=== PATIENT | male | born 1955 | race Caucasian/White ===

== ENCOUNTER 2018-12-26 18:41 | Inpatient (IN) | payer MEDICAID ==
[~2018-12-26] VITALS: Ht 183 cm; Wt 79.8 kg
[2018-12-26] MEDS ORDERED: SODIUM CHLORIDE 0.9% 500 ML IV ONE (20:00)
[2018-12-26 20:11] LABS: BASOPHILS % 0.8 % (0.0-2.0); HEMATOCRIT. 32.2 % (42.0-52.0); HEMOGLOBIN. 10.8 g/dL (14.0-18.0); LYMPHOCYTES % 16.7 % (20.0-50.0); MEAN CORPUSCULAR HEMOGLOBIN 29.2 pg (28.0-32.0); MEAN CORPUSCULAR VOLUME 87.1 fL (80.0-94.0); MEAN PLATELET VOLUME 8.3 fl (7.4-10.4); MONOCYTES % 11.1 % (2.0-8.0); NEUTROPHILS % 67.4 % (40.0-76.0); PLATELET 162 x1000/uL (130-400); RED CELL DISTRIBUTION WIDTH 18.9 % (11.6-14.6)
[2018-12-26 20:20] LABS: CHLORIDE 105 mEq/L (98-107)
[2018-12-26] MEDS ORDERED: DILTIAZEM HCL 5MG/ML 5ML VIAL IV ONE ×2 (20:30→21:30)
[2018-12-26] MEDS ORDERED: DILTIAZEM HCL 125 MG in DEXT 5% WATER 100 ML IV ONE ×2 (20:30→21:00)
[2018-12-26 20:42] LABS: INR 1.2; PARTIAL THROMBOPLASTIN TIME 26.6 sec (23.4-31.0)
[2018-12-26] MEDS ORDERED: KETOROLAC 30MG/ML VIAL IV ONE (21:00)
[2018-12-26] MEDS ORDERED: HALOPERIDOL LACTATE 5MG/ML VIAL IM ONE (21:00)
[2018-12-27] VITALS (62 sets, daily range): BP systolic 72–140; BP diastolic 30–99
[2018-12-27] MEDS ORDERED: AMIODARONE HCL 900 MG in DEXT 5% WATER 482 ML IV PRN ×2 (01:00→01:15)
[2018-12-27] MEDS ORDERED: FUROSEMIDE 40MG/4ML VIAL IVP NR (01:45)
[2018-12-27] MEDS ORDERED: LORAZEPAM 2MG/ML CPJ IV NR ×2 (03:15→19:30)
[2018-12-27] MEDS ORDERED: CYCL25PO21 MT (03:45)
[2018-12-27] MEDS ORDERED: LISI-604 MT (03:45)
[2018-12-27] MEDS ORDERED: SPIR25TA6 MT (03:45)
[2018-12-27] MEDS ORDERED: DIGO250T79 PO (03:45)
[2018-12-27] MEDS ORDERED: FURO-151 MT (03:45)
[2018-12-27] MEDS ORDERED: COR25 MT (03:45)
[2018-12-27] MEDS: DILTIAZEM HCL 125 MG in DEXT 5% WATER 100 ML IV PRN ×2 (04:19→09:47)
[2018-12-27] MEDS: AMIODARONE HCL 900 MG in DEXT 5% WATER 482 ML IV PRN (04:21)
[2018-12-27 04:48] LABS: BG BASE EXCESS -1.6 mmol/L (-2.0-2.0); BG CARBOXYHEMOGLOBIN 0.9 % (0.5-1.5); BG DEOXYHEMOGLOBIN 3.9 % (0.0-5.0); BG FRACTION INSPIRED OXYGEN 100; BG HCO3 ACT 23.9 mmol/L (22.0-26.0); BG METHEMOGLOBIN 0.1 % (0.0-1.5); BG OXYGEN SATURATION 96.1 % (92.0-98.5); BG OXYHEMOGLOBIN 95.1 % (94.0-97.0); BG PH 7.362 (7.350-7.450); BG SAMPLE SITE RIGHT BRACHIAL; BG TOTAL HEMOGLOBIN 13.3 g/dL (12.0-18.0); BG VENT MODE MASK - NRB
[2018-12-27 05:48] LABS: BASOPHILS % 0.6 % (0.0-2.0); HEMATOCRIT. 37.8 % (42.0-52.0); HEMOGLOBIN. 12.4 g/dL (14.0-18.0); LYMPHOCYTES % 9.3 % (20.0-50.0); MEAN CORPUSCULAR HEMOGLOBIN 28.9 pg (28.0-32.0); MEAN PLATELET VOLUME 9.1 fl (7.4-10.4); MONOCYTES % 8.3 % (2.0-8.0); NEUTROPHILS % 80.8 % (40.0-76.0); PLATELET 212 x1000/uL (130-400); RED CELL DISTRIBUTION WIDTH 18.7 % (11.6-14.6)
[2018-12-27 05:50] LABS: CHLORIDE 102 mEq/L (98-107)
[2018-12-27] MEDS ORDERED: FUROSEMIDE 100MG/10ML VIAL IV SCH (07:45)
[2018-12-27 08:08] LABS: BG CARBOXYHEMOGLOBIN 0.9 % (0.5-1.5); BG DEOXYHEMOGLOBIN 6.7 % (0.0-5.0); BG FRACTION INSPIRED OXYGEN 100; BG METHEMOGLOBIN 0.2 % (0.0-1.5); BG OXYGEN SATURATION 93.2 % (92.0-98.5); BG OXYHEMOGLOBIN 92.2 % (94.0-97.0); BG PH 7.341 (7.350-7.450); BG PO2 75.1 mmHg (75.0-100.0); BG SAMPLE SITE RIGHT BRACHIAL; BG TOTAL HEMOGLOBIN 14.1 g/dL (12.0-18.0); BG VENT MODE MASK - NRB
[2018-12-27] MEDS ORDERED: BUMETANIDE 1MG/4ML VIAL IV SCH (08:50)
[2018-12-27] MEDS ORDERED: IPRATROPIUM BROMIDE (0.02%) 0.5MG/2.5ML NEB HHN PRN (09:00)
[2018-12-27] MEDS: IPRATROPIUM BROMIDE (0.02%) 0.5MG/2.5ML NEB HHN SCH ×4 (09:48→20:56)
[2018-12-27] MEDS: BUMETANIDE 2.5MG/10ML VIAL IV SCH ×2 (11:03→17:08)
[2018-12-27] MEDS: ENOXAPARIN 80MG/0.8ML SYR SUBCUT SCH (17:08)
[2018-12-27] MEDS ORDERED: NOREPINEPHRINE 16 MG in DEXT 5% WATER 484 ML IV PRN (19:45)
[2018-12-27] MEDS ORDERED: MORPHINE SULFATE 2 MG/ML CPJ (NOT FOR IM USE) IV NR (22:45)
[2018-12-28] VITALS (111 sets, daily range): BP systolic 52–151; BP diastolic 28–89
[2018-12-28] MEDS: NOREPINEPHRINE 16 MG in DEXT 5% WATER 484 ML IV PRN ×3 (00:17→14:49)
[2018-12-28] MEDS: IPRATROPIUM BROMIDE (0.02%) 0.5MG/2.5ML NEB HHN SCH ×6 (00:41→20:33)
[2018-12-28] MEDS: LORAZEPAM 2MG/ML CPJ IV PRN ×2 (02:00→07:39)
[2018-12-28] MEDS ORDERED: AMIODARONE HCL 900 MG in DEXT 5% WATER 482 ML IV SCH (02:15)
[2018-12-28] MEDS: MORPHINE SULFATE 2 MG/ML CPJ (NOT FOR IM USE) IV PRN ×4 (04:19→22:25)
[2018-12-28] MEDS: ENOXAPARIN 80MG/0.8ML SYR SUBCUT SCH (05:16)
[2018-12-28] MEDS: AMIODARONE HCL 900 MG in DEXT 5% WATER 482 ML IV PRN (05:21)
[2018-12-28] MEDS ORDERED: INSULIN REGULAR (HUMULIN R) 300UNITS/3ML IV ONE (07:00)
[2018-12-28] MEDS ORDERED: DEXTROSE 50% WATER 50ML SYRINGE IV ONE (07:00)
[2018-12-28] MEDS ORDERED: SODIUM POLYSTYRENE SULFONATE 15 G/60 ML BOT PO ONE (07:00)
[2018-12-28] MEDS ORDERED: SODIUM BICARBONATE 8.4% 1 MEQ/ML 50ML SYR IV NR ×2 (08:30→11:30)
[2018-12-28] MEDS: BUMETANIDE 2.5MG/10ML VIAL IV SCH ×2 (09:31→17:54)
[2018-12-28] MEDS: PROPOFOL 10MG/ML 100ML 100 ML IV PRN ×2 (09:32→14:00)
[2018-12-28] MEDS ORDERED: DEXTROSE 50% WATER 50ML SYRINGE IV SCH (09:45)
[2018-12-28] MEDS ORDERED: INSULIN REGULAR (HUMULIN R) 300UNITS/3ML IV SCH (10:00)
[2018-12-28 10:51] LABS: BG BASE EXCESS -14.6 mmol/L (-2.0-2.0); BG CARBOXYHEMOGLOBIN 0.7 % (0.5-1.5); BG DEOXYHEMOGLOBIN 0.5 % (0.0-5.0); BG FRACTION INSPIRED OXYGEN 100; BG HCO3 ACT 15.7 mmol/L (22.0-26.0); BG METHEMOGLOBIN 0.4 % (0.0-1.5); BG OXYGEN SATURATION 99.5 % (92.0-98.5); BG OXYHEMOGLOBIN 98.4 % (94.0-97.0); BG PCO2 55.9 mmHg (35.0-45.0); BG PH 7.067 (7.350-7.450); BG PO2 275.7 mmHg (75.0-100.0); BG SAMPLE SITE LEFT RADIAL; BG TIDAL VOLUME(mL) 500 mL; BG TOTAL HEMOGLOBIN 13.1 g/dL (12.0-18.0); BG VENT MODE VENT - A/C; BG VENT RATE 18 set
[2018-12-28] MEDS ORDERED: SODIUM BICARBONATE 8.4% 1 MEQ/ML 50ML SYR IV ONE ×2 (11:00→11:25)
[2018-12-28] MEDS ORDERED: SODIUM BICARBONATE 8.4% 1 MEQ/ML 50ML SYR IV SCH (11:00)
[2018-12-28] MEDS: PHENYLEPHRINE 40 MG in DEXT 5% WATER 246 ML IV PRN ×2 (11:01→11:34)
[2018-12-28] MEDS: FAMOTIDINE 20MG/2ML VIAL IV SCH (11:20)
[2018-12-28] MEDS ORDERED: CALCIUM CHLORIDE 1,000 MG in DEXT 5% WATER 90 ML IV SCH (12:30)
[2018-12-28] MEDS ORDERED: LIDOCAINE HCL 1% 20ML VIAL (Pyxis) INJ ONE (13:29)
[2018-12-28 15:26] LABS: BG BASE EXCESS -3.6 mmol/L (-2.0-2.0); BG CARBOXYHEMOGLOBIN 1.2 % (0.5-1.5); BG DEOXYHEMOGLOBIN 7.6 % (0.0-5.0); BG FRACTION INSPIRED OXYGEN 40; BG HCO3 ACT 22.6 mmol/L (22.0-26.0); BG METHEMOGLOBIN 0.1 % (0.0-1.5); BG OXYGEN SATURATION 92.3 % (92.0-98.5); BG OXYHEMOGLOBIN 91.1 % (94.0-97.0); BG PCO2 45.5 mmHg (35.0-45.0); BG PH 7.314 (7.350-7.450); BG PO2 70.2 mmHg (75.0-100.0); BG SAMPLE SITE RIGHT RADIAL; BG TIDAL VOLUME(mL) 500 mL; BG TOTAL HEMOGLOBIN 12.8 g/dL (12.0-18.0); BG VENT MODE VENT - A/C; BG VENT RATE 24 set
[2018-12-28 15:38] LABS: HEMATOCRIT. 39.3 % (42.0-52.0); HEMOGLOBIN. 12.5 g/dL (14.0-18.0); MEAN CORPUSCULAR HEMOGLOBIN 28.4 pg (28.0-32.0); MEAN CORPUSCULAR VOLUME 89.6 fL (80.0-94.0); MEAN PLATELET VOLUME 9.4 fl (7.4-10.4); PLATELET 206 x1000/uL (130-400); RED BLOOD CELL COUNT 4.39 mill/uL (4.7-6.1); RED CELL DISTRIBUTION WIDTH 18.6 % (11.6-14.6)
[2018-12-28 17:01] LABS: PLATELET ESTIMATE NORMAL
[2018-12-28 17:12] LABS: *AMPHETAMINES SCREEN URINE NEGATIVE (NEGATIVE); *BARBITURATES SCREEN URINE NEGATIVE (NEGATIVE)
[2018-12-28 17:13] LABS: *BENZODIAZEPINES SCREEN URINE NEGATIVE (NEGATIVE); *COCAINE SCREEN URINE NEGATIVE (NEGATIVE); CANNABINOID URINE SCREEN NEGATIVE (NEGATIVE); METHADONE URINE SCREEN NEGATIVE (NEGATIVE); OPIATES URINE SCREEN NEGATIVE (NEGATIVE)
[2018-12-28 17:16] LABS: PHENCYCLIDINE URINE SCREEN NEGATIVE (NEGATIVE)
[2018-12-28 19:59] LABS: BG BASE EXCESS 2.3 mmol/L (-2.0-2.0); BG DEOXYHEMOGLOBIN 9.1 % (0.0-5.0); BG FRACTION INSPIRED OXYGEN 100; BG HCO3 ACT 28.1 mmol/L (22.0-26.0); BG METHEMOGLOBIN 0.2 % (0.0-1.5); BG OXYGEN SATURATION 90.8 % (92.0-98.5); BG OXYHEMOGLOBIN 89.7 % (94.0-97.0); BG PH 7.377 (7.350-7.450); BG PO2 65.1 mmHg (75.0-100.0); BG SAMPLE SITE RIGHT BRACHIAL; BG TIDAL VOLUME(mL) 500 mL; BG TOTAL HEMOGLOBIN 12.8 g/dL (12.0-18.0); BG VENT MODE VENT - A/C; BG VENT RATE 24 set
[2018-12-29] VITALS (97 sets, daily range): BP systolic 88–123; BP diastolic 42–84
[2018-12-29] MEDS: IPRATROPIUM BROMIDE (0.02%) 0.5MG/2.5ML NEB HHN SCH ×6 (00:51→20:48)
[2018-12-29] MEDS: NOREPINEPHRINE 16 MG in DEXT 5% WATER 484 ML IV PRN ×2 (02:04→23:29)
[2018-12-29] MEDS: PROPOFOL 10MG/ML 100ML 100 ML IV PRN ×5 (02:59→21:19)
[2018-12-29 05:30] LABS: CHLORIDE 101 mEq/L (98-107)
[2018-12-29 05:31] LABS: BASOPHILS % 0.2 % (0.0-2.0); EOSINOPHILS % 0.2 % (0.0-5.0); HEMATOCRIT. 34.6 % (42.0-52.0); HEMOGLOBIN. 11.5 g/dL (14.0-18.0); MEAN CORPUSCULAR HEMOGLOBIN 29.1 pg (28.0-32.0); MEAN CORPUSCULAR VOLUME 87.3 fL (80.0-94.0); MONOCYTES % 4.9 % (2.0-8.0); NEUTROPHILS % 81.7 % (40.0-76.0); PLATELET 121 x1000/uL (130-400); RED BLOOD CELL COUNT 3.96 mill/uL (4.7-6.1); RED CELL DISTRIBUTION WIDTH 19.2 % (11.6-14.6)
[2018-12-29 05:39] LABS: PHOSPHORUS 6.8 mg/dL (2.5-4.9)
[2018-12-29 05:41] LABS: CREATINE KINASE 524 IU/L (39-308)
[2018-12-29 07:57] LABS: BG BASE EXCESS 1.9 mmol/L (-2.0-2.0); BG CARBOXYHEMOGLOBIN 0.3 % (0.5-1.5); BG DEOXYHEMOGLOBIN 3.8 % (0.0-5.0); BG HCO3 ACT 26.4 mmol/L (22.0-26.0); BG OXYGEN SATURATION 96.2 % (92.0-98.5); BG OXYHEMOGLOBIN 95.9 % (94.0-97.0); BG PCO2 40.8 mmHg (35.0-45.0); BG PH 7.428 (7.350-7.450); BG PO2 87.2 mmHg (75.0-100.0); BG SAMPLE SITE RIGHT BRACHIAL; BG TIDAL VOLUME(mL) 500 mL; BG TOTAL HEMOGLOBIN 12.3 g/dL (12.0-18.0); BG VENT MODE VENT - A/C; BG VENT RATE 24 set
[2018-12-29] MEDS: FAMOTIDINE 20MG/2ML VIAL IV SCH (08:12)
[2018-12-29] MEDS: BUMETANIDE 2.5MG/10ML VIAL IV SCH ×2 (08:12→17:58)
[2018-12-29] MEDS ORDERED: CALCIUM CHLORIDE 1,000 MG in DEXT 5% WATER 90 ML IV ONE ×2 (09:00→18:00)
[2018-12-29] MEDS ORDERED: ENOXAPARIN 80MG/0.8ML SYR SUBCUT SCH (09:00)
[2018-12-29] MEDS ORDERED: ENOXAPARIN 40MG/0.4ML SYR SUBCUT SCH (09:45)
[2018-12-29] MEDS ORDERED: CALCIUM CHLORIDE 2,000 MG in DEXT 5% WATER 250 ML IV SCH (10:00)
[2018-12-29] MEDS: PANTOPRAZOLE SODIUM 40 MG/VIAL IV SCH (15:12)
[2018-12-29 17:05] LABS: AMYLASE 223 IU/L (25-115)
[2018-12-29 17:44] LABS: HEPATITIS B SURFACE ANTIGEN NEGATIVE
[2018-12-29 18:13] LABS: HEPATITIS A AB IGM NEGATIVE (NEGATIVE)
[2018-12-29] MEDS ORDERED: CALCIUM CHLORIDE 2,000 MG in DEXT 5% WATER 90 ML IV NR (18:45)
[2018-12-30] VITALS (94 sets, daily range): BP systolic 85–139; BP diastolic 49–78
[2018-12-30] MEDS: IPRATROPIUM BROMIDE (0.02%) 0.5MG/2.5ML NEB HHN SCH ×6 (00:40→20:02)
[2018-12-30] MEDS: PANTOPRAZOLE SODIUM 40 MG/VIAL IV SCH ×3 (00:50→21:13)
[2018-12-30] MEDS ORDERED: DIGOXIN 500MCG/2ML AMP IV NR ×3 (01:00→05:00)
[2018-12-30] MEDS: DILTIAZEM HCL 5MG/ML 5ML VIAL IV PRN ×3 (01:34→09:06)
[2018-12-30] MEDS: PROPOFOL 10MG/ML 100ML 100 ML IV PRN ×2 (03:38→08:33)
[2018-12-30 05:18] LABS: BASOPHILS % 0.1 % (0.0-2.0); EOSINOPHILS % 0.3 % (0.0-5.0); HEMOGLOBIN. 12.3 g/dL (14.0-18.0); LYMPHOCYTES % 7.2 % (20.0-50.0); MEAN CORPUSCULAR VOLUME 87.5 fL (80.0-94.0); MEAN PLATELET VOLUME 8.9 fl (7.4-10.4); MONOCYTES % 5.6 % (2.0-8.0); NEUTROPHILS % 86.8 % (40.0-76.0); PLATELET 121 x1000/uL (130-400); RED BLOOD CELL COUNT 4.23 mill/uL (4.7-6.1); RED CELL DISTRIBUTION WIDTH 19.5 % (11.6-14.6)
[2018-12-30 06:27] LABS: CHLORIDE 107 mEq/L (98-107)
[2018-12-30 06:32] LABS: PHOSPHORUS 6.3 mg/dL (2.5-4.9)
[2018-12-30] MEDS: BUMETANIDE 2.5MG/10ML VIAL IV SCH ×2 (07:13→16:23)
[2018-12-30 07:27] LABS: BG BASE EXCESS -0.6 mmol/L (-2.0-2.0); BG CARBOXYHEMOGLOBIN 0.8 % (0.5-1.5); BG DEOXYHEMOGLOBIN 3.2 % (0.0-5.0); BG FRACTION INSPIRED OXYGEN 40; BG HCO3 ACT 24.8 mmol/L (22.0-26.0); BG METHEMOGLOBIN 0.1 % (0.0-1.5); BG OXYGEN SATURATION 96.8 % (92.0-98.5); BG OXYHEMOGLOBIN 95.9 % (94.0-97.0); BG PCO2 43.9 mmHg (35.0-45.0); BG PO2 94.4 mmHg (75.0-100.0); BG SAMPLE SITE RIGHT BRACHIAL; BG TIDAL VOLUME(mL) 500 mL; BG TOTAL HEMOGLOBIN 12.8 g/dL (12.0-18.0); BG VENT MODE VENT - A/C; BG VENT RATE 24 set
[2018-12-30] MEDS: ENOXAPARIN 30MG/0.3ML SYR SUBCUT SCH (08:34)
[2018-12-30] MEDS ORDERED: AMIODARONE HCL 150 MG in DEXT 5% WATER 100 ML IV NR (11:30)
[2018-12-30] MEDS: FENTANYL CITRATE/PF 500 MCG in SODIUM CHLORIDE 0.9% 40 ML IV PRN ×2 (13:09→22:05)
[2018-12-30] MEDS: MIDAZOLAM HCL 50 MG in DEXTROSE 5% WATER 40 ML IV PRN ×2 (13:10→22:48)
[2018-12-30] MEDS: AMIODARONE HCL 900 MG in DEXT 5% WATER 482 ML IV PRN (13:49)
[2018-12-30] MEDS: LACTULOSE 20G/30ML UDC PO SCH ×2 (14:58→21:13)
[2018-12-30] MEDS ORDERED: PIPERACILLIN/TAZOBACTAM 3.375 G in DEXT 5% WATER 100 ML IV SCH (17:45)
[2018-12-30] MEDS ORDERED: VANCOMYCIN 1,750 MG in DEXT 5% WATER 250 ML IV NR (21:00)
[2018-12-30] MEDS: PIPERACILLIN/TAZOBACTAM 2.25 G in DEXTROSE 5% WATER 50 ML IV SCH (21:13)
[2018-12-31] VITALS (89 sets, daily range): BP systolic 84–130; BP diastolic 49–74
[2018-12-31] MEDS: IPRATROPIUM BROMIDE (0.02%) 0.5MG/2.5ML NEB HHN SCH ×6 (00:29→19:58)
[2018-12-31] MEDS: NOREPINEPHRINE 16 MG in DEXT 5% WATER 484 ML IV PRN (03:20)
[2018-12-31] MEDS: LACTULOSE 20G/30ML UDC PO SCH ×3 (05:36→20:53)
[2018-12-31] MEDS: PIPERACILLIN/TAZOBACTAM 2.25 G in DEXTROSE 5% WATER 50 ML IV SCH (05:36)
[2018-12-31 06:15] LABS: HEMOGLOBIN. 12.4 g/dL (14.0-18.0); MEAN CORPUSCULAR HEMOGLOBIN 29.2 pg (28.0-32.0); MEAN CORPUSCULAR VOLUME 86.9 fL (80.0-94.0); MEAN PLATELET VOLUME 8.6 fl (7.4-10.4); PLATELET 89 x1000/uL (130-400); RED BLOOD CELL COUNT 4.25 mill/uL (4.7-6.1); RED CELL DISTRIBUTION WIDTH 19.6 % (11.6-14.6)
[2018-12-31 06:43] LABS: CHLORIDE 104 mEq/L (98-107)
[2018-12-31 06:48] LABS: PHOSPHORUS 7.6 mg/dL (2.5-4.9)
[2018-12-31 08:15] LABS: NUCLEATED RED BLOOD CELLS 1 /100 WBC; PLATELET ESTIMATE DECREASED
[2018-12-31] MEDS: PANTOPRAZOLE SODIUM 40 MG/VIAL IV SCH ×2 (08:20→20:53)
[2018-12-31] MEDS: BUMETANIDE 2.5MG/10ML VIAL IV SCH ×2 (08:20→17:04)
[2018-12-31] MEDS: ENOXAPARIN 30MG/0.3ML SYR SUBCUT SCH (08:20)
[2018-12-31 08:45] LABS: BG CARBOXYHEMOGLOBIN 1.1 % (0.5-1.5); BG DEOXYHEMOGLOBIN 2.5 % (0.0-5.0); BG FRACTION INSPIRED OXYGEN 40; BG HCO3 ACT 22.6 mmol/L (22.0-26.0); BG METHEMOGLOBIN 0.3 % (0.0-1.5); BG OXYGEN SATURATION 97.5 % (92.0-98.5); BG OXYHEMOGLOBIN 96.1 % (94.0-97.0); BG PCO2 46.6 mmHg (35.0-45.0); BG PH 7.303 (7.350-7.450); BG PO2 102.9 mmHg (75.0-100.0); BG SAMPLE SITE RIGHT BRACHIAL; BG TIDAL VOLUME(mL) 500 mL; BG TOTAL HEMOGLOBIN 16.3 g/dL (12.0-18.0); BG VENT MODE VENT - A/C; BG VENT RATE 24 set
[2018-12-31] MEDS: AMIODARONE HCL 900 MG in DEXT 5% WATER 482 ML IV PRN (12:14)
[2018-12-31] MEDS: DILTIAZEM HCL 125 MG in DEXT 5% WATER 100 ML IV SCH (14:25)
[2018-12-31] MEDS ORDERED: CEFEPIME 2,000 MG in DEXT 5% WATER 100 ML IV SCH ×2 (15:00→23:30)
[2018-12-31] MEDS: DILTIAZEM HCL 5MG/ML 5ML VIAL IV PRN (23:08)
[2019-01-01] VITALS (92 sets, daily range): BP systolic 81–134; BP diastolic 41–77
[2019-01-01] MEDS: IPRATROPIUM BROMIDE (0.02%) 0.5MG/2.5ML NEB HHN SCH ×6 (00:15→19:57)
[2019-01-01 04:07] LABS: HIV SCREEN 4G Non Reactive (Non Reactive)
[2019-01-01 05:36] LABS: HEMOGLOBIN. 12.9 g/dL (14.0-18.0); MEAN CORPUSCULAR HEMOGLOBIN 28.8 pg (28.0-32.0); MEAN PLATELET VOLUME 8.8 fl (7.4-10.4); PLATELET 89 x1000/uL (130-400); RED BLOOD CELL COUNT 4.49 mill/uL (4.7-6.1); RED CELL DISTRIBUTION WIDTH 19.6 % (11.6-14.6)
[2019-01-01 06:03] LABS: PHOSPHORUS 7.7 mg/dL (2.5-4.9)
[2019-01-01] MEDS: LACTULOSE 20G/30ML UDC PO SCH ×3 (06:24→21:05)
[2019-01-01] MEDS: ACETAMINOPHEN 325MG TABLET PO PRN (06:25)
[2019-01-01] MEDS: DILTIAZEM HCL 5MG/ML 5ML VIAL IV PRN (06:25)
[2019-01-01] MEDS: NOREPINEPHRINE 16 MG in DEXT 5% WATER 484 ML IV PRN (06:26)
[2019-01-01] MEDS: BUMETANIDE 2.5MG/10ML VIAL IV SCH ×2 (06:26→18:08)
[2019-01-01] MEDS: DILTIAZEM HCL 125 MG in DEXT 5% WATER 100 ML IV SCH (06:26)
[2019-01-01 07:24] LABS: BG BASE EXCESS -5.4 mmol/L (-2.0-2.0); BG CARBOXYHEMOGLOBIN 1.2 % (0.5-1.5); BG DEOXYHEMOGLOBIN 1.6 % (0.0-5.0); BG FRACTION INSPIRED OXYGEN 40; BG HCO3 ACT 20.2 mmol/L (22.0-26.0); BG METHEMOGLOBIN 0.3 % (0.0-1.5); BG OXYGEN SATURATION 98.4 % (92.0-98.5); BG OXYHEMOGLOBIN 96.9 % (94.0-97.0); BG PCO2 39.6 mmHg (35.0-45.0); BG PH 7.325 (7.350-7.450); BG PO2 124.5 mmHg (75.0-100.0); BG SAMPLE SITE RIGHT BRACHIAL; BG TIDAL VOLUME(mL) 500 mL; BG TOTAL HEMOGLOBIN 13.7 g/dL (12.0-18.0); BG VENT MODE VENT - A/C; BG VENT RATE 24 set
[2019-01-01] MEDS: ENOXAPARIN 30MG/0.3ML SYR SUBCUT SCH (09:00)
[2019-01-01] MEDS: PANTOPRAZOLE SODIUM 40 MG/VIAL IV SCH ×2 (09:27→20:55)
[2019-01-01 12:57] LABS: BASOPHILS % 0.8 % (0.0-2.0); EOSINOPHILS % 0.1 % (0.0-5.0); HEMATOCRIT. 36.8 % (42.0-52.0); LYMPHOCYTES % 8.3 % (20.0-50.0); MEAN CORPUSCULAR HEMOGLOBIN 28.8 pg (28.0-32.0); MEAN PLATELET VOLUME 8.3 fl (7.4-10.4); MONOCYTES % 14.4 % (2.0-8.0); NEUTROPHILS % 76.4 % (40.0-76.0); PLATELET 69 x1000/uL (130-400); RED BLOOD CELL COUNT 4.18 mill/uL (4.7-6.1); RED CELL DISTRIBUTION WIDTH 20.2 % (11.6-14.6)
[2019-01-01] MEDS: CEFEPIME 2,000 MG in DEXT 5% WATER 100 ML IV SCH (13:26)
[2019-01-01 13:56] LABS: PLATELET ESTIMATE DECREASED
[2019-01-01] MEDS ORDERED: SODIUM POLYSTYRENE SULFONATE 15 G/60 ML BOT NG SCH (14:00)
[2019-01-01] MEDS ORDERED: VANCOMYCIN 1250MG in DEXTROSE 5% WATER 250ML IV SCH (16:00)
[2019-01-02] VITALS (87 sets, daily range): BP systolic 78–134; BP diastolic 47–101
[2019-01-02] MEDS: IPRATROPIUM BROMIDE (0.02%) 0.5MG/2.5ML NEB HHN SCH ×6 (00:22→20:02)
[2019-01-02] MEDS: DILTIAZEM HCL 5MG/ML 5ML VIAL IV PRN ×2 (04:00→09:57)
[2019-01-02 05:24] LABS: BASOPHILS % 0.4 % (0.0-2.0); EOSINOPHILS % 0.8 % (0.0-5.0); HEMATOCRIT. 38.7 % (42.0-52.0); HEMOGLOBIN. 12.7 g/dL (14.0-18.0); MEAN CORPUSCULAR HEMOGLOBIN 28.7 pg (28.0-32.0); MEAN PLATELET VOLUME 9.5 fl (7.4-10.4); MONOCYTES % 11.3 % (2.0-8.0); NEUTROPHILS % 76.5 % (40.0-76.0); PLATELET 65 x1000/uL (130-400); RED BLOOD CELL COUNT 4.44 mill/uL (4.7-6.1)
[2019-01-02 06:03] LABS: PHOSPHORUS 9.4 mg/dL (2.5-4.9)
[2019-01-02] MEDS: LACTULOSE 20G/30ML UDC PO SCH ×3 (06:38→21:39)
[2019-01-02] MEDS: ENOXAPARIN 30MG/0.3ML SYR SUBCUT SCH (08:10)
[2019-01-02] MEDS: BUMETANIDE 2.5MG/10ML VIAL IV SCH ×2 (08:14→17:27)
[2019-01-02] MEDS: PANTOPRAZOLE SODIUM 40 MG/VIAL IV SCH ×2 (08:14→21:39)
[2019-01-02 10:26] LABS: BG BASE EXCESS -8.4 mmol/L (-2.0-2.0); BG CARBOXYHEMOGLOBIN 0.8 % (0.5-1.5); BG FRACTION INSPIRED OXYGEN 40; BG HCO3 ACT 18.1 mmol/L (22.0-26.0); BG METHEMOGLOBIN 0.1 % (0.0-1.5); BG OXYHEMOGLOBIN 96.1 % (94.0-97.0); BG PCO2 40.6 mmHg (35.0-45.0); BG PH 7.266 (7.350-7.450); BG PO2 103.3 mmHg (75.0-100.0); BG SAMPLE SITE RIGHT BRACHIAL; BG TIDAL VOLUME(mL) 500 mL; BG TOTAL HEMOGLOBIN 13.2 g/dL (12.0-18.0); BG VENT MODE VENT - A/C; BG VENT RATE 24 set
[2019-01-02] MEDS ORDERED: SODIUM BICARBONATE 8.4% 1 MEQ/ML 50ML SYR IV NR (11:00)
[2019-01-02] MEDS: CEFEPIME 2,000 MG in DEXT 5% WATER 100 ML IV SCH (13:56)
[2019-01-02] MEDS ORDERED: VANCOMYCIN 1 G PREMIX 200 ML IV SCH (14:00)
[2019-01-02] MEDS: NOREPINEPHRINE 16 MG in DEXT 5% WATER 484 ML IV PRN (16:47)
[2019-01-02] MEDS: METOCLOPRAMIDE HCL 10MG/2ML VIAL IV SCH (17:26)
[2019-01-02 19:10] LABS: BG BASE EXCESS -4.1 mmol/L (-2.0-2.0); BG CARBOXYHEMOGLOBIN 0.6 % (0.5-1.5); BG DEOXYHEMOGLOBIN 3.4 % (0.0-5.0); BG FRACTION INSPIRED OXYGEN 35; BG HCO3 ACT 20.8 mmol/L (22.0-26.0); BG METHEMOGLOBIN 0.2 % (0.0-1.5); BG OXYGEN SATURATION 96.6 % (92.0-98.5); BG OXYHEMOGLOBIN 95.8 % (94.0-97.0); BG PCO2 37.6 mmHg (35.0-45.0); BG PH 7.361 (7.350-7.450); BG SAMPLE SITE RIGHT RADIAL; BG TIDAL VOLUME(mL) 500 mL; BG VENT MODE VENT - A/C; BG VENT RATE 26 set
[2019-01-03] VITALS (85 sets, daily range): BP systolic 101–146; BP diastolic 56–91
[2019-01-03] MEDS: METOCLOPRAMIDE HCL 10MG/2ML VIAL IV SCH ×4 (00:17→17:22)
[2019-01-03] MEDS: IPRATROPIUM BROMIDE (0.02%) 0.5MG/2.5ML NEB HHN SCH ×6 (00:23→20:14)
[2019-01-03] MEDS: DILTIAZEM HCL 5MG/ML 5ML VIAL IV PRN ×2 (01:55→06:32)
[2019-01-03 05:41] LABS: HEMATOCRIT. 36.3 % (42.0-52.0); MEAN CORPUSCULAR HEMOGLOBIN 28.8 pg (28.0-32.0); MEAN PLATELET VOLUME 9.3 fl (7.4-10.4); RED BLOOD CELL COUNT 4.18 mill/uL (4.7-6.1); RED CELL DISTRIBUTION WIDTH 20.4 % (11.6-14.6)
[2019-01-03 05:46] LABS: PLATELET 49 x1000/uL (130-400)
[2019-01-03] MEDS: LACTULOSE 20G/30ML UDC PO SCH ×3 (05:57→21:27)
[2019-01-03 07:40] LABS: PLATELET ESTIMATE MARKEDLY DECREASED
[2019-01-03] MEDS: BUMETANIDE 2.5MG/10ML VIAL IV SCH ×2 (08:30→17:52)
[2019-01-03] MEDS: PANTOPRAZOLE SODIUM 40 MG/VIAL IV SCH ×2 (08:31→21:27)
[2019-01-03] MEDS: DILTIAZEM HCL 125 MG in DEXT 5% WATER 100 ML IV PRN ×2 (10:41→17:53)
[2019-01-03] MEDS: CEFEPIME 2,000 MG in DEXT 5% WATER 100 ML IV SCH (13:03)
[2019-01-03] MEDS: ACETAMINOPHEN 325MG TABLET PO PRN (15:52)
[2019-01-03] MEDS ORDERED: DIGOXIN 500MCG/2ML AMP IV NR (17:00)
[2019-01-03 19:45] LABS: T4 FREE 1.05 ng/dL (0.76-1.46)
[2019-01-03 21:33] LABS: VITAMIN B12 SERUM > 2000.0 pg/mL (211-911)
[2019-01-03] MEDS: CEFTRIAXONE 2 G in DEXTROSE 5% WATER 50 ML IV SCH (22:13)
[2019-01-04] VITALS (107 sets, daily range): BP systolic 91–149; BP diastolic 48–106
[2019-01-04] MEDS: METOCLOPRAMIDE HCL 10MG/2ML VIAL IV SCH ×4 (00:07→19:23)
[2019-01-04] MEDS: IPRATROPIUM BROMIDE (0.02%) 0.5MG/2.5ML NEB HHN SCH ×6 (00:25→20:09)
[2019-01-04] MEDS: DILTIAZEM HCL 125 MG in DEXT 5% WATER 100 ML IV PRN (04:13)
[2019-01-04 05:29] LABS: HEMATOCRIT. 33.4 % (42.0-52.0); HEMOGLOBIN. 11.2 g/dL (14.0-18.0); MEAN CORPUSCULAR HEMOGLOBIN 28.6 pg (28.0-32.0); MEAN CORPUSCULAR VOLUME 85.1 fL (80.0-94.0); MEAN PLATELET VOLUME 10.2 fl (7.4-10.4); RED BLOOD CELL COUNT 3.92 mill/uL (4.7-6.1)
[2019-01-04 05:51] LABS: PHOSPHORUS 8.8 mg/dL (2.5-4.9)
[2019-01-04] MEDS: LACTULOSE 20G/30ML UDC PO SCH ×3 (06:26→21:05)
[2019-01-04 07:31] LABS: PLATELET ESTIMATE MARKEDLY DECREASED
[2019-01-04 07:32] LABS: PLATELET 41 x1000/uL (130-400)
[2019-01-04] MEDS: PANTOPRAZOLE SODIUM 40 MG/VIAL IV SCH ×2 (08:42→21:05)
[2019-01-04] MEDS: BUMETANIDE 2.5MG/10ML VIAL IV SCH ×2 (08:43→19:23)
[2019-01-04 09:36] LABS: BG BASE EXCESS -5.2 mmol/L (-2.0-2.0); BG CARBOXYHEMOGLOBIN 0.4 % (0.5-1.5); BG DEOXYHEMOGLOBIN 1.2 % (0.0-5.0); BG FRACTION INSPIRED OXYGEN 35; BG HCO3 ACT 18.4 mmol/L (22.0-26.0); BG METHEMOGLOBIN 0.2 % (0.0-1.5); BG OXYGEN SATURATION 98.8 % (92.0-98.5); BG OXYHEMOGLOBIN 98.2 % (94.0-97.0); BG PCO2 30.1 mmHg (35.0-45.0); BG PH 7.405 (7.350-7.450); BG PO2 152.9 mmHg (75.0-100.0); BG SAMPLE SITE RIGHT RADIAL; BG TIDAL VOLUME(mL) 500 mL; BG TOTAL HEMOGLOBIN 11.8 g/dL (12.0-18.0); BG VENT MODE VENT - A/C; BG VENT RATE 26 set
[2019-01-04] MEDS: ACETYLCYSTEINE 100MG/ML 10% VIAL 4ML INH SCH (12:34)
[2019-01-04] MEDS: DILTIAZEM HCL 5MG/ML 5ML VIAL IV PRN (13:11)
[2019-01-04] MEDS: ACETAMINOPHEN 325MG TABLET PO PRN ×2 (13:11→22:53)
[2019-01-04] MEDS ORDERED: VANCOMYCIN 1 G PREMIX 200 ML IV NR (18:00)
[2019-01-04] MEDS: BLOOD SUGAR DIAGNOSTIC STRIP TEST SCH (18:00)
[2019-01-04] MEDS: INSULIN LISPRO 100 UNITS/ML SUBCUT SCH ×2 (18:20→21:00)
[2019-01-04] MEDS: CEFTRIAXONE 2 G in DEXTROSE 5% WATER 50 ML IV SCH (21:05)
[2019-01-05] VITALS (91 sets, daily range): BP systolic 101–142; BP diastolic 47–84
[2019-01-05] MEDS: BLOOD SUGAR DIAGNOSTIC STRIP TEST SCH ×4 (00:10→18:30)
[2019-01-05] MEDS: METOCLOPRAMIDE HCL 10MG/2ML VIAL IV SCH ×4 (00:11→17:01)
[2019-01-05] MEDS: DILTIAZEM HCL 125 MG in DEXT 5% WATER 100 ML IV PRN ×2 (00:11→13:28)
[2019-01-05] MEDS: ACETYLCYSTEINE 100MG/ML 10% VIAL 4ML INH SCH ×3 (00:14→16:53)
[2019-01-05] MEDS: IPRATROPIUM BROMIDE (0.02%) 0.5MG/2.5ML NEB HHN SCH ×6 (00:15→20:30)
[2019-01-05] MEDS: LACTULOSE 20G/30ML UDC PO SCH ×3 (06:26→21:24)
[2019-01-05 07:06] LABS: HEMATOCRIT. 32.4 % (42.0-52.0); HEMOGLOBIN. 10.7 g/dL (14.0-18.0); MEAN CORPUSCULAR HEMOGLOBIN 28.2 pg (28.0-32.0); MEAN CORPUSCULAR VOLUME 85.1 fL (80.0-94.0); MEAN PLATELET VOLUME 10.7 fl (7.4-10.4); PLATELET 61 x1000/uL (130-400); RED CELL DISTRIBUTION WIDTH 19.3 % (11.6-14.6)
[2019-01-05] MEDS: PANTOPRAZOLE SODIUM 40 MG/VIAL IV SCH ×2 (08:18→20:18)
[2019-01-05] MEDS: INSULIN LISPRO 100 UNITS/ML SUBCUT SCH ×4 (08:18→21:00)
[2019-01-05] MEDS: BUMETANIDE 2.5MG/10ML VIAL IV SCH ×2 (08:18→17:15)
[2019-01-05] MEDS: ACETAMINOPHEN 325MG TABLET PO PRN (08:19)
[2019-01-05 11:16] LABS: PLATELET ESTIMATE DECREASED
[2019-01-05] MEDS: LORAZEPAM 2MG/ML CPJ IV PRN (15:35)
[2019-01-05] MEDS: CEFTRIAXONE 2 G in DEXTROSE 5% WATER 50 ML IV SCH (20:18)
[2019-01-06] VITALS (81 sets, daily range): BP systolic 98–142; BP diastolic 52–89
[2019-01-06] MEDS: BLOOD SUGAR DIAGNOSTIC STRIP TEST SCH ×4 (00:15→17:44)
[2019-01-06] MEDS: METOCLOPRAMIDE HCL 10MG/2ML VIAL IV SCH ×4 (00:15→17:21)
[2019-01-06] MEDS: IPRATROPIUM BROMIDE (0.02%) 0.5MG/2.5ML NEB HHN SCH ×6 (00:30→20:24)
[2019-01-06] MEDS: ACETYLCYSTEINE 100MG/ML 10% VIAL 4ML INH SCH ×2 (00:31→16:09)
[2019-01-06] MEDS: DILTIAZEM HCL 125 MG in DEXT 5% WATER 100 ML IV PRN (04:28)
[2019-01-06] MEDS: ACETAMINOPHEN 325MG TABLET PO PRN ×3 (05:58→17:46)
[2019-01-06] MEDS: LACTULOSE 20G/30ML UDC PO SCH ×3 (05:58→22:09)
[2019-01-06 06:39] LABS: HEMATOCRIT. 29.9 % (42.0-52.0); HEMOGLOBIN. 9.8 g/dL (14.0-18.0); MEAN CORPUSCULAR VOLUME 85.7 fL (80.0-94.0); MEAN PLATELET VOLUME 10.5 fl (7.4-10.4); PLATELET 81 x1000/uL (130-400); RED BLOOD CELL COUNT 3.49 mill/uL (4.7-6.1); RED CELL DISTRIBUTION WIDTH 19.5 % (11.6-14.6)
[2019-01-06 07:49] LABS: CHLORIDE 108 mEq/L (98-107)
[2019-01-06] MEDS: INSULIN LISPRO 100 UNITS/ML SUBCUT SCH ×3 (08:20→21:00)
[2019-01-06 08:24] LABS: PLATELET ESTIMATE DECREASED
[2019-01-06] MEDS: BUMETANIDE 2.5MG/10ML VIAL IV SCH ×2 (08:29→17:44)
[2019-01-06] MEDS: CEFTRIAXONE 2 G in DEXTROSE 5% WATER 50 ML IV SCH ×2 (08:30→22:08)
[2019-01-06] MEDS: PANTOPRAZOLE SODIUM 40 MG/VIAL IV SCH ×2 (08:30→22:09)
[2019-01-06 09:36] LABS: PHOSPHORUS 9.8 mg/dL (2.5-4.9)
[2019-01-06] MEDS: DILTIAZEM HCL 60MG TABLET PO SCH ×2 (14:04→22:09)
[2019-01-06 14:25] LABS: BG BASE EXCESS -9.6 mmol/L (-2.0-2.0); BG CARBOXYHEMOGLOBIN 0.6 % (0.5-1.5); BG DEOXYHEMOGLOBIN 1.2 % (0.0-5.0); BG FRACTION INSPIRED OXYGEN 35; BG HCO3 ACT 14.8 mmol/L (22.0-26.0); BG METHEMOGLOBIN 0.2 % (0.0-1.5); BG OXYGEN SATURATION 98.8 % (92.0-98.5); BG PCO2 27.7 mmHg (35.0-45.0); BG PH 7.346 (7.350-7.450); BG SAMPLE SITE RIGHT RADIAL; BG TIDAL VOLUME(mL) 500 mL; BG TOTAL HEMOGLOBIN 10.4 g/dL (12.0-18.0); BG VENT MODE VENT - A/C; BG VENT RATE 26 set
[2019-01-06] MEDS: CALCIUM CARBONATE 1,250 MG/5 ML UDC PO SCH (22:11)
[2019-01-07] VITALS (25 sets, daily range): BP systolic 98–143; BP diastolic 53–81
[2019-01-07] MEDS: ACETYLCYSTEINE 100MG/ML 10% VIAL 4ML INH SCH ×3 (00:11→15:44)
[2019-01-07] MEDS: IPRATROPIUM BROMIDE (0.02%) 0.5MG/2.5ML NEB HHN SCH ×6 (00:11→21:26)
[2019-01-07] MEDS: METOCLOPRAMIDE HCL 10MG/2ML VIAL IV SCH ×4 (00:20→17:14)
[2019-01-07] MEDS: BLOOD SUGAR DIAGNOSTIC STRIP TEST SCH ×4 (00:21→17:09)
[2019-01-07] MEDS: LACTULOSE 20G/30ML UDC PO SCH ×3 (05:53→21:18)
[2019-01-07] MEDS: DILTIAZEM HCL 60MG TABLET PO SCH ×3 (05:54→21:17)
[2019-01-07 07:12] LABS: HEMATOCRIT. 30.8 % (42.0-52.0); HEMOGLOBIN. 10.2 g/dL (14.0-18.0); MEAN CORPUSCULAR HEMOGLOBIN 28.6 pg (28.0-32.0); MEAN CORPUSCULAR VOLUME 86.5 fL (80.0-94.0); MEAN PLATELET VOLUME 10.4 fl (7.4-10.4); PLATELET 101 x1000/uL (130-400); RED BLOOD CELL COUNT 3.56 mill/uL (4.7-6.1); RED CELL DISTRIBUTION WIDTH 19.6 % (11.6-14.6)
[2019-01-07 07:28] LABS: PHOSPHORUS 7.5 mg/dL (2.5-4.9)
[2019-01-07] MEDS: CEFTRIAXONE 2 G in DEXTROSE 5% WATER 50 ML IV SCH ×2 (08:01→21:19)
[2019-01-07] MEDS: CALCIUM CARBONATE 1,250 MG/5 ML UDC PO SCH ×2 (08:01→17:14)
[2019-01-07] MEDS: PANTOPRAZOLE SODIUM 40 MG/VIAL IV SCH ×2 (08:01→21:17)
[2019-01-07] MEDS: LORAZEPAM 2MG/ML CPJ IV PRN ×2 (08:01→21:18)
[2019-01-07 08:36] LABS: BG BASE EXCESS -5.1 mmol/L (-2.0-2.0); BG CARBOXYHEMOGLOBIN 1.2 % (0.5-1.5); BG DEOXYHEMOGLOBIN 1.1 % (0.0-5.0); BG FRACTION INSPIRED OXYGEN 35; BG HCO3 ACT 19.5 mmol/L (22.0-26.0); BG METHEMOGLOBIN 0.1 % (0.0-1.5); BG OXYGEN SATURATION 98.9 % (92.0-98.5); BG OXYHEMOGLOBIN 97.6 % (94.0-97.0); BG PCO2 34.9 mmHg (35.0-45.0); BG PH 7.366 (7.350-7.450); BG PO2 166.8 mmHg (75.0-100.0); BG SAMPLE SITE RIGHT RADIAL; BG TIDAL VOLUME(mL) 500 mL; BG TOTAL HEMOGLOBIN 11.3 g/dL (12.0-18.0); BG VENT MODE VENT - A/C; BG VENT RATE 26 set
[2019-01-07 10:23] LABS: PLATELET ESTIMATE DECREASED
[2019-01-07] MEDS ORDERED: VANCOMYCIN 500 MG PREMIX 100 ML IV SCH (11:00)
[2019-01-07] MEDS: INSULIN LISPRO 100 UNITS/ML SUBCUT SCH ×2 (11:42→17:09)
[2019-01-07] MEDS: DILTIAZEM HCL 5MG/ML 5ML VIAL IV PRN (18:21)
[2019-01-08] VITALS (72 sets, daily range): BP systolic 68–139; BP diastolic 38–90
[2019-01-08] MEDS: IPRATROPIUM BROMIDE (0.02%) 0.5MG/2.5ML NEB HHN SCH ×6 (00:15→20:59)
[2019-01-08] MEDS: ACETYLCYSTEINE 100MG/ML 10% VIAL 4ML INH SCH ×3 (00:15→16:25)
[2019-01-08] MEDS: LACTULOSE 20G/30ML UDC PO SCH (05:08)
[2019-01-08] MEDS: DILTIAZEM HCL 60MG TABLET PO SCH ×3 (05:08→22:00)
[2019-01-08] MEDS: BLOOD SUGAR DIAGNOSTIC STRIP TEST SCH ×3 (05:09→12:45)
[2019-01-08] MEDS: INSULIN LISPRO 100 UNITS/ML SUBCUT SCH ×3 (05:09→12:00)
[2019-01-08 05:28] LABS: HEMATOCRIT. 28.4 % (42.0-52.0); HEMOGLOBIN. 9.3 g/dL (14.0-18.0); MEAN CORPUSCULAR HEMOGLOBIN 28.5 pg (28.0-32.0); MEAN CORPUSCULAR VOLUME 86.7 fL (80.0-94.0); MEAN PLATELET VOLUME 10.8 fl (7.4-10.4); PLATELET 130 x1000/uL (130-400); RED BLOOD CELL COUNT 3.28 mill/uL (4.7-6.1); RED CELL DISTRIBUTION WIDTH 19.4 % (11.6-14.6)
[2019-01-08 06:33] LABS: PHOSPHORUS 8.7 mg/dL (2.5-4.9)
[2019-01-08] MEDS: ENOXAPARIN 30MG/0.3ML SYR SUBCUT SCH (08:30)
[2019-01-08] MEDS: CALCIUM CARBONATE 1,250 MG/5 ML UDC PO SCH ×2 (08:30→18:20)
[2019-01-08] MEDS: PANTOPRAZOLE SODIUM 40 MG/VIAL IV SCH ×2 (08:30→22:01)
[2019-01-08] MEDS: CALCIUM ACETATE 667MG CAPSULE PO SCH ×3 (08:31→18:20)
[2019-01-08] MEDS: METOCLOPRAMIDE HCL 10MG/2ML VIAL IV SCH ×3 (08:31→12:00)
[2019-01-08] MEDS: CEFTRIAXONE 2 G in DEXTROSE 5% WATER 50 ML IV SCH ×2 (08:37→22:01)
[2019-01-08 09:11] LABS: BG BASE EXCESS -8.2 mmol/L (-2.0-2.0); BG CARBOXYHEMOGLOBIN 0.2 % (0.5-1.5); BG DEOXYHEMOGLOBIN 1.3 % (0.0-5.0); BG FRACTION INSPIRED OXYGEN 35; BG HCO3 ACT 17.3 mmol/L (22.0-26.0); BG METHEMOGLOBIN 0.3 % (0.0-1.5); BG OXYGEN SATURATION 98.7 % (92.0-98.5); BG OXYHEMOGLOBIN 98.2 % (94.0-97.0); BG PCO2 35.6 mmHg (35.0-45.0); BG PH 7.305 (7.350-7.450); BG PO2 159.2 mmHg (75.0-100.0); BG SAMPLE SITE RIGHT RADIAL; BG TIDAL VOLUME(mL) 500 mL; BG TOTAL HEMOGLOBIN 8.8 g/dL (12.0-18.0); BG VENT MODE VENT - A/C; BG VENT RATE 26 set
[2019-01-08 09:30] LABS: PLATELET ESTIMATE NORMAL
[2019-01-08] MEDS: DILTIAZEM HCL 5MG/ML 5ML VIAL IV PRN (12:42)
[2019-01-08] MEDS: PHENYLEPHRINE 40 MG in DEXT 5% WATER 246 ML IV PRN ×2 (12:44→23:53)
[2019-01-08] MEDS: LINEZOLID 600 MG PREMIX 300 ML IV SCH (13:13)
[2019-01-08 13:21] LABS: HEMATOCRIT 22.1 % (42.0-52.0); HEMOGLOBIN 7.3 g/dL (14.0-18.0)
[2019-01-08 13:26] LABS: INR 1.2; PROTHROMBIN TIME 12.3 sec (9.6-11.0)
[2019-01-08] MEDS: DILTIAZEM HCL 125 MG in DEXT 5% WATER 100 ML IV PRN (13:34)
[2019-01-08] MEDS: NOREPINEPHRINE 16 MG in DEXT 5% WATER 484 ML IV PRN (20:54)
[2019-01-08 21:51] LABS: BG BASE EXCESS -11.5 mmol/L (-2.0-2.0); BG CARBOXYHEMOGLOBIN 0.2 % (0.5-1.5); BG DEOXYHEMOGLOBIN 1.6 % (0.0-5.0); BG FRACTION INSPIRED OXYGEN 35; BG HCO3 ACT 13.9 mmol/L (22.0-26.0); BG METHEMOGLOBIN 0.1 % (0.0-1.5); BG OXYGEN SATURATION 98.4 % (92.0-98.5); BG OXYHEMOGLOBIN 98.1 % (94.0-97.0); BG PH 7.285 (7.350-7.450); BG PO2 149.1 mmHg (75.0-100.0); BG SAMPLE SITE RIGHT RADIAL; BG TIDAL VOLUME(mL) 500 mL; BG TOTAL HEMOGLOBIN 9.8 g/dL (12.0-18.0); BG VENT MODE VENT - A/C; BG VENT RATE 26 set
[2019-01-08] MEDS: LORAZEPAM 2MG/ML CPJ IV PRN (22:01)
[2019-01-08] MEDS ORDERED: SODIUM BICARBONATE 8.4% 1 MEQ/ML 50ML SYR IV SCH (22:17)
[2019-01-08] MEDS: MORPHINE SULFATE 2 MG/ML CPJ (NOT FOR IM USE) IV PRN (22:44)
[2019-01-08 23:11] LABS: HEMATOCRIT 27.5 % (42.0-52.0); HEMOGLOBIN 8.8 g/dL (14.0-18.0)
[2019-01-08 23:31] LABS: PHOSPHORUS 8.2 mg/dL (2.5-4.9)
[2019-01-09] VITALS (112 sets, daily range): BP systolic 86–137; BP diastolic 50–82
[2019-01-09] MEDS: METOCLOPRAMIDE HCL 10MG/2ML VIAL IV SCH ×4 (00:24→18:00)
[2019-01-09] MEDS: BLOOD SUGAR DIAGNOSTIC STRIP TEST SCH ×4 (00:24→18:00)
[2019-01-09] MEDS: DEXTROSE 50% WATER 50ML SYRINGE IV PRN (00:42)
[2019-01-09] MEDS: IPRATROPIUM BROMIDE (0.02%) 0.5MG/2.5ML NEB HHN SCH ×6 (00:44→21:04)
[2019-01-09] MEDS: ACETYLCYSTEINE 100MG/ML 10% VIAL 4ML INH SCH ×2 (00:44→08:06)
[2019-01-09] MEDS: LINEZOLID 600 MG PREMIX 300 ML IV SCH ×2 (01:40→14:38)
[2019-01-09] MEDS: INSULIN LISPRO 100 UNITS/ML SUBCUT SCH ×4 (05:05→18:00)
[2019-01-09] MEDS: DILTIAZEM HCL 60MG TABLET PO SCH ×3 (05:05→23:14)
[2019-01-09 05:50] LABS: PHOSPHORUS 8.6 mg/dL (2.5-4.9)
[2019-01-09 05:54] LABS: MEAN CORPUSCULAR HEMOGLOBIN 28.2 pg (28.0-32.0); MEAN CORPUSCULAR VOLUME 87.1 fL (80.0-94.0); MEAN PLATELET VOLUME 11.4 fl (7.4-10.4); PLATELET 193 x1000/uL (130-400); RED BLOOD CELL COUNT 2.47 mill/uL (4.7-6.1); RED CELL DISTRIBUTION WIDTH 18.4 % (11.6-14.6)
[2019-01-09 06:41] LABS: HEMATOCRIT. 21.5 % (42.0-52.0)
[2019-01-09] MEDS ORDERED: NA PHOS,M-B/NA PHOS,DI-BA ENEMA 118ML PR NR (08:00)
[2019-01-09] MEDS: PHENYLEPHRINE 40 MG in DEXT 5% WATER 246 ML IV PRN ×3 (08:08→15:52)
[2019-01-09] MEDS: SORBITOL 70% SOLN 30ML GT SCH ×2 (08:10→11:28)
[2019-01-09] MEDS: PANTOPRAZOLE SODIUM 40 MG/VIAL IV SCH ×2 (08:11→22:57)
[2019-01-09] MEDS: CALCIUM ACETATE 667MG CAPSULE PO SCH ×3 (08:11→18:20)
[2019-01-09] MEDS: CEFTRIAXONE 2 G in DEXTROSE 5% WATER 50 ML IV SCH ×2 (08:11→22:57)
[2019-01-09] MEDS: CALCIUM CARBONATE 1,250 MG/5 ML UDC PO SCH ×2 (08:11→18:20)
[2019-01-09 08:31] LABS: BG BASE EXCESS 0.8 mmol/L (-2.0-2.0); BG CARBOXYHEMOGLOBIN 0.3 % (0.5-1.5); BG DEOXYHEMOGLOBIN 1.5 % (0.0-5.0); BG FRACTION INSPIRED OXYGEN 35; BG HCO3 ACT 24.6 mmol/L (22.0-26.0); BG METHEMOGLOBIN 0.1 % (0.0-1.5); BG OXYGEN SATURATION 98.5 % (92.0-98.5); BG OXYHEMOGLOBIN 98.1 % (94.0-97.0); BG PH 7.464 (7.350-7.450); BG PO2 156.7 mmHg (75.0-100.0); BG SAMPLE SITE RIGHT RADIAL; BG TIDAL VOLUME(mL) 500 mL; BG TOTAL HEMOGLOBIN 7.2 g/dL (12.0-18.0); BG VENT MODE VENT - A/C; BG VENT RATE 30 set
[2019-01-09 10:14] LABS: PLATELET ESTIMATE NORMAL
[2019-01-09] MEDS: MORPHINE SULFATE 2 MG/ML CPJ (NOT FOR IM USE) IV PRN ×2 (14:39→23:21)
[2019-01-09 15:12] LABS: HEMOGLOBIN 10.1 g/dL (14.0-18.0)
[2019-01-09] MEDS ORDERED: MIDAZOLAM HCL 5 MG/5 ML VIAL ONE ×2 (15:47→15:48)
[2019-01-09] MEDS ORDERED: SIMETHICONE 40 MG/0.6 ML 30ML ONE (15:47)
[2019-01-09] MEDS ORDERED: FENTANYL CITRATE/PF 50MCG/ML 2ML VIAL ONE (15:47)
[2019-01-09] MEDS ORDERED: MIDAZOLAM HCL 5 MG/5 ML VIAL IV PRN (16:17)
[2019-01-09 18:19] LABS: HEMATOCRIT 30.1 % (42.0-52.0); HEMOGLOBIN 10.1 g/dL (14.0-18.0)
[2019-01-10] VITALS (117 sets, daily range): BP systolic 71–146; BP diastolic 49–83
[2019-01-10] MEDS: IPRATROPIUM BROMIDE (0.02%) 0.5MG/2.5ML NEB HHN SCH ×6 (00:31→20:12)
[2019-01-10] MEDS: LINEZOLID 600 MG PREMIX 300 ML IV SCH ×2 (03:03→14:53)
[2019-01-10] MEDS: PHENYLEPHRINE 40 MG in DEXT 5% WATER 246 ML IV PRN (03:05)
[2019-01-10 03:06] LABS: BASOPHILS % 0.5 % (0.0-2.0); EOSINOPHILS % 1.2 % (0.0-5.0); HEMOGLOBIN. 9.4 g/dL (14.0-18.0); LYMPHOCYTES % 7.1 % (20.0-50.0); MEAN CORPUSCULAR HEMOGLOBIN 28.5 pg (28.0-32.0); MEAN CORPUSCULAR VOLUME 85.2 fL (80.0-94.0); MEAN PLATELET VOLUME 10.7 fl (7.4-10.4); MONOCYTES % 3.6 % (2.0-8.0); NEUTROPHILS % 87.6 % (40.0-76.0); PLATELET 216 x1000/uL (130-400); RED BLOOD CELL COUNT 3.29 mill/uL (4.7-6.1)
[2019-01-10] MEDS: METOCLOPRAMIDE HCL 10MG/2ML VIAL IV SCH ×4 (03:07→18:35)
[2019-01-10] MEDS: DILTIAZEM HCL 5MG/ML 5ML VIAL IV PRN ×3 (03:36→12:39)
[2019-01-10] MEDS: LORAZEPAM 2MG/ML CPJ IV PRN ×3 (03:36→15:44)
[2019-01-10 04:03] LABS: PHOSPHORUS 9.2 mg/dL (2.5-4.9)
[2019-01-10] MEDS: INSULIN LISPRO 100 UNITS/ML SUBCUT SCH ×4 (06:00→18:00)
[2019-01-10 06:28] LABS: HEMATOCRIT 27.3 % (42.0-52.0); HEMOGLOBIN 9.1 g/dL (14.0-18.0)
[2019-01-10] MEDS: BLOOD SUGAR DIAGNOSTIC STRIP TEST SCH ×4 (06:41→18:00)
[2019-01-10] MEDS: DILTIAZEM HCL 60MG TABLET PO SCH ×3 (06:41→22:00)
[2019-01-10] MEDS: PHENYLEPHRINE 80 MG in DEXT 5% WATER 492 ML IV PRN (06:42)
[2019-01-10] MEDS: MORPHINE SULFATE 2 MG/ML CPJ (NOT FOR IM USE) IV PRN ×2 (07:44→15:40)
[2019-01-10] MEDS: CALCIUM CARBONATE 1,250 MG/5 ML UDC PO SCH ×2 (07:45→18:35)
[2019-01-10] MEDS: CALCIUM ACETATE 667MG CAPSULE PO SCH ×3 (07:45→18:34)
[2019-01-10 08:16] LABS: BG BASE EXCESS -4.5 mmol/L (-2.0-2.0); BG CARBOXYHEMOGLOBIN 0.5 % (0.5-1.5); BG DEOXYHEMOGLOBIN 1.9 % (0.0-5.0); BG FRACTION INSPIRED OXYGEN 30; BG HCO3 ACT 18.3 mmol/L (22.0-26.0); BG METHEMOGLOBIN 0.2 % (0.0-1.5); BG OXYGEN SATURATION 98.1 % (92.0-98.5); BG OXYHEMOGLOBIN 97.4 % (94.0-97.0); BG PCO2 27.1 mmHg (35.0-45.0); BG PH 7.448 (7.350-7.450); BG PO2 126.8 mmHg (75.0-100.0); BG SAMPLE SITE LEFT RADIAL; BG TIDAL VOLUME(mL) 500 mL; BG VENT MODE VENT - A/C; BG VENT RATE 30 set
[2019-01-10] MEDS: CEFTRIAXONE 2 G in DEXTROSE 5% WATER 50 ML IV SCH ×2 (09:07→21:46)
[2019-01-10] MEDS: PANTOPRAZOLE SODIUM 40 MG/VIAL IV SCH ×2 (09:08→21:46)
[2019-01-10 09:21] LABS: HEMATOCRIT. 23.7 % (42.0-52.0); MEAN CORPUSCULAR HEMOGLOBIN 28.8 pg (28.0-32.0); MEAN CORPUSCULAR VOLUME 84.9 fL (80.0-94.0); MEAN PLATELET VOLUME 10.4 fl (7.4-10.4); PLATELET 220 x1000/uL (130-400); RED BLOOD CELL COUNT 2.79 mill/uL (4.7-6.1)
[2019-01-10 09:26] LABS: CHLORIDE 110 mEq/L (98-107)
[2019-01-10] MEDS ORDERED: ALBUMIN HUMAN 25GM/100ML (25%) IV NR (11:04)
[2019-01-10 13:22] LABS: PLATELET ESTIMATE NORMAL
[2019-01-10 15:41] LABS: HEMATOCRIT 28.3 % (42.0-52.0); HEMOGLOBIN 9.7 g/dL (14.0-18.0)
[2019-01-10 20:23] LABS: HEMATOCRIT 27.4 % (42.0-52.0); HEMOGLOBIN 9.4 g/dL (14.0-18.0)
[2019-01-11] VITALS (96 sets, daily range): BP systolic 99–130; BP diastolic 49–79
[2019-01-11] MEDS: IPRATROPIUM BROMIDE (0.02%) 0.5MG/2.5ML NEB HHN SCH ×5 (00:21→19:48)
[2019-01-11] MEDS: PHENYLEPHRINE 80 MG in DEXT 5% WATER 492 ML IV PRN (00:56)
[2019-01-11] MEDS: METOCLOPRAMIDE HCL 10MG/2ML VIAL IV SCH ×4 (00:57→17:56)
[2019-01-11] MEDS: BLOOD SUGAR DIAGNOSTIC STRIP TEST SCH ×4 (00:57→17:56)
[2019-01-11] MEDS: LORAZEPAM 2MG/ML CPJ IV PRN ×4 (01:49→17:56)
[2019-01-11] MEDS: MORPHINE SULFATE 2 MG/ML CPJ (NOT FOR IM USE) IV PRN ×4 (01:50→17:56)
[2019-01-11] MEDS: LINEZOLID 600 MG PREMIX 300 ML IV SCH ×2 (01:53→14:54)
[2019-01-11] MEDS: DILTIAZEM HCL 60MG TABLET PO SCH ×3 (06:00→21:23)
[2019-01-11] MEDS: INSULIN LISPRO 100 UNITS/ML SUBCUT SCH ×4 (06:00→17:56)
[2019-01-11 06:48] LABS: BASOPHILS % 1.1 % (0.0-2.0); EOSINOPHILS % 1.9 % (0.0-5.0); HEMATOCRIT. 26.9 % (42.0-52.0); HEMOGLOBIN. 9.1 g/dL (14.0-18.0); LYMPHOCYTES % 11.4 % (20.0-50.0); MEAN CORPUSCULAR HEMOGLOBIN 29.6 pg (28.0-32.0); MEAN CORPUSCULAR VOLUME 87.2 fL (80.0-94.0); MEAN PLATELET VOLUME 10.6 fl (7.4-10.4); MONOCYTES % 3.9 % (2.0-8.0); NEUTROPHILS % 81.7 % (40.0-76.0); PLATELET 184 x1000/uL (130-400); RED BLOOD CELL COUNT 3.09 mill/uL (4.7-6.1); RED CELL DISTRIBUTION WIDTH 16.4 % (11.6-14.6)
[2019-01-11 07:19] LABS: PHOSPHORUS 7.4 mg/dL (2.5-4.9)
[2019-01-11] MEDS: CALCIUM CARBONATE 1,250 MG/5 ML UDC PO SCH ×2 (08:16→17:55)
[2019-01-11] MEDS: CEFTRIAXONE 2 G in DEXTROSE 5% WATER 50 ML IV SCH ×2 (08:16→21:22)
[2019-01-11] MEDS: CALCIUM ACETATE 667MG CAPSULE PO SCH ×3 (08:16→17:55)
[2019-01-11] MEDS: PANTOPRAZOLE SODIUM 40 MG/VIAL IV SCH ×2 (08:16→21:22)
[2019-01-11] MEDS: IPRATROPIUM/ALBUTEROL 0.5-3(2.5)MG/3ML NEB HHN PRN (08:44)
[2019-01-11 09:07] LABS: BG BASE EXCESS -0.5 mmol/L (-2.0-2.0); BG CARBOXYHEMOGLOBIN 0.1 % (0.5-1.5); BG DEOXYHEMOGLOBIN 1.5 % (0.0-5.0); BG FRACTION INSPIRED OXYGEN 30; BG HCO3 ACT 21.5 mmol/L (22.0-26.0); BG METHEMOGLOBIN 0.2 % (0.0-1.5); BG OXYGEN SATURATION 98.5 % (92.0-98.5); BG OXYHEMOGLOBIN 98.2 % (94.0-97.0); BG PCO2 26.8 mmHg (35.0-45.0); BG PH 7.523 (7.350-7.450); BG PO2 152.4 mmHg (75.0-100.0); BG SAMPLE SITE RIGHT BRACHIAL; BG TIDAL VOLUME(mL) 500 mL; BG TOTAL HEMOGLOBIN 9.8 g/dL (12.0-18.0); BG VENT MODE VENT - A/C; BG VENT RATE 30 set
[2019-01-11] MEDS ORDERED: POTASSIUM CHLORIDE INJ 40 MEQ in DEXT 5% WATER 250 ML IV SCH (13:00)
[2019-01-11 14:17] LABS: BG BASE EXCESS -3.3 mmol/L (-2.0-2.0); BG CARBOXYHEMOGLOBIN 0.3 % (0.5-1.5); BG DEOXYHEMOGLOBIN 2.1 % (0.0-5.0); BG FRACTION INSPIRED OXYGEN 30; BG HCO3 ACT 20.6 mmol/L (22.0-26.0); BG METHEMOGLOBIN 0.1 % (0.0-1.5); BG OXYGEN SATURATION 97.9 % (92.0-98.5); BG OXYHEMOGLOBIN 97.5 % (94.0-97.0); BG PCO2 32.8 mmHg (35.0-45.0); BG PH 7.416 (7.350-7.450); BG PO2 135.6 mmHg (75.0-100.0); BG SAMPLE SITE RIGHT RADIAL; BG TIDAL VOLUME(mL) 500 mL; BG VENT MODE VENT - A/C; BG VENT RATE 20 set
[2019-01-11] MEDS ORDERED: BISACODYL 10MG SUPP PR NR (15:30)
[2019-01-11 18:36] LABS: HEMATOCRIT 28.2 % (42.0-52.0); HEMOGLOBIN 9.6 g/dL (14.0-18.0)
[2019-01-12] VITALS (91 sets, daily range): BP systolic 86–137; BP diastolic 36–76
[2019-01-12] MEDS: METOCLOPRAMIDE HCL 10MG/2ML VIAL IV SCH ×2 (00:01→05:36)
[2019-01-12] MEDS: BLOOD SUGAR DIAGNOSTIC STRIP TEST SCH ×5 (00:07→23:07)
[2019-01-12] MEDS: IPRATROPIUM BROMIDE (0.02%) 0.5MG/2.5ML NEB HHN SCH ×6 (00:37→20:41)
[2019-01-12 01:52] LABS: HEMOGLOBIN 9.1 g/dL (14.0-18.0)
[2019-01-12] MEDS: LINEZOLID 600 MG PREMIX 300 ML IV SCH ×2 (02:11→15:41)
[2019-01-12] MEDS: MORPHINE SULFATE 2 MG/ML CPJ (NOT FOR IM USE) IV PRN ×5 (05:36→23:38)
[2019-01-12] MEDS: LORAZEPAM 2MG/ML CPJ IV PRN ×4 (05:36→23:38)
[2019-01-12] MEDS: DILTIAZEM HCL 60MG TABLET PO SCH ×3 (05:36→21:58)
[2019-01-12] MEDS: INSULIN LISPRO 100 UNITS/ML SUBCUT SCH ×5 (06:00→23:07)
[2019-01-12 06:20] LABS: HEMOGLOBIN. 8.8 g/dL (14.0-18.0); MEAN CORPUSCULAR VOLUME 88.5 fL (80.0-94.0); PLATELET 146 x1000/uL (130-400); RED BLOOD CELL COUNT 2.94 mill/uL (4.7-6.1); RED CELL DISTRIBUTION WIDTH 16.8 % (11.6-14.6)
[2019-01-12 06:35] LABS: PHOSPHORUS 8.6 mg/dL (2.5-4.9)
[2019-01-12] MEDS ORDERED: DILTIAZEM HCL 5MG/ML 5ML VIAL IV PRN (07:15)
[2019-01-12 08:31] LABS: PLATELET ESTIMATE NORMAL
[2019-01-12] MEDS: CALCIUM CARBONATE 1,250 MG/5 ML UDC PO SCH ×2 (09:07→18:30)
[2019-01-12] MEDS: CALCIUM ACETATE 667MG CAPSULE PO SCH ×3 (09:07→18:30)
[2019-01-12] MEDS: PANTOPRAZOLE SODIUM 40 MG/VIAL IV SCH ×2 (09:07→21:58)
[2019-01-12] MEDS: CEFTRIAXONE 2 G in DEXTROSE 5% WATER 50 ML IV SCH ×2 (09:08→21:58)
[2019-01-12] MEDS: DILTIAZEM HCL 125 MG in DEXT 5% WATER 100 ML IV PRN (10:23)
[2019-01-12 10:34] LABS: BG BASE EXCESS 2.5 mmol/L (-2.0-2.0); BG CARBOXYHEMOGLOBIN 0.4 % (0.5-1.5); BG DEOXYHEMOGLOBIN 1.7 % (0.0-5.0); BG FRACTION INSPIRED OXYGEN 30; BG HCO3 ACT 25.6 mmol/L (22.0-26.0); BG METHEMOGLOBIN 0.4 % (0.0-1.5); BG OXYGEN SATURATION 98.3 % (92.0-98.5); BG OXYHEMOGLOBIN 97.5 % (94.0-97.0); BG PCO2 33.7 mmHg (35.0-45.0); BG PH 7.499 (7.350-7.450); BG PO2 129.3 mmHg (75.0-100.0); BG SAMPLE SITE RIGHT RADIAL; BG TIDAL VOLUME(mL) 500 mL; BG TOTAL HEMOGLOBIN 8.6 g/dL (12.0-18.0); BG VENT MODE VENT - A/C; BG VENT RATE 14 set
[2019-01-13] VITALS (49 sets, daily range): BP systolic 89–121; BP diastolic 47–71
[2019-01-13] MEDS: IPRATROPIUM BROMIDE (0.02%) 0.5MG/2.5ML NEB HHN SCH ×6 (01:02→19:56)
[2019-01-13] MEDS: LINEZOLID 600 MG PREMIX 300 ML IV SCH ×2 (02:31→14:01)
[2019-01-13] MEDS: BLOOD SUGAR DIAGNOSTIC STRIP TEST SCH ×3 (05:25→17:15)
[2019-01-13] MEDS: INSULIN LISPRO 100 UNITS/ML SUBCUT SCH ×3 (05:25→17:26)
[2019-01-13] MEDS: LORAZEPAM 2MG/ML CPJ IV PRN ×4 (06:03→17:30)
[2019-01-13] MEDS: MORPHINE SULFATE 2 MG/ML CPJ (NOT FOR IM USE) IV PRN ×3 (06:04→17:31)
[2019-01-13] MEDS: DILTIAZEM HCL 60MG TABLET PO SCH ×3 (06:04→21:36)
[2019-01-13 06:30] LABS: BASOPHILS % 0.5 % (0.0-2.0); EOSINOPHILS % 1.5 % (0.0-5.0); HEMOGLOBIN. 7.7 g/dL (14.0-18.0); LYMPHOCYTES % 7.9 % (20.0-50.0); MEAN CORPUSCULAR HEMOGLOBIN 29.9 pg (28.0-32.0); MEAN CORPUSCULAR VOLUME 90.1 fL (80.0-94.0); MEAN PLATELET VOLUME 9.9 fl (7.4-10.4); MONOCYTES % 4.7 % (2.0-8.0); NEUTROPHILS % 85.4 % (40.0-76.0); PLATELET 157 x1000/uL (130-400); RED BLOOD CELL COUNT 2.56 mill/uL (4.7-6.1)
[2019-01-13 06:40] LABS: PHOSPHORUS 5.2 mg/dL (2.5-4.9)
[2019-01-13] MEDS: CALCIUM ACETATE 667MG CAPSULE PO SCH ×3 (08:10→17:15)
[2019-01-13] MEDS: CEFTRIAXONE 2 G in DEXTROSE 5% WATER 50 ML IV SCH ×2 (08:10→21:37)
[2019-01-13] MEDS: CALCIUM CARBONATE 1,250 MG/5 ML UDC PO SCH ×2 (08:10→17:15)
[2019-01-13] MEDS: PANTOPRAZOLE SODIUM 40 MG/VIAL IV SCH ×2 (08:10→21:36)
[2019-01-13 09:38] LABS: BG BASE EXCESS -2.4 mmol/L (-2.0-2.0); BG CARBOXYHEMOGLOBIN 0.7 % (0.5-1.5); BG DEOXYHEMOGLOBIN 1.5 % (0.0-5.0); BG FRACTION INSPIRED OXYGEN 30; BG HCO3 ACT 21.6 mmol/L (22.0-26.0); BG METHEMOGLOBIN 0.3 % (0.0-1.5); BG OXYGEN SATURATION 98.5 % (92.0-98.5); BG OXYHEMOGLOBIN 97.5 % (94.0-97.0); BG PCO2 33.8 mmHg (35.0-45.0); BG PH 7.424 (7.350-7.450); BG PO2 138.4 mmHg (75.0-100.0); BG SAMPLE SITE RIGHT RADIAL; BG TIDAL VOLUME(mL) 500 mL; BG TOTAL HEMOGLOBIN 7.7 g/dL (12.0-18.0); BG VENT MODE VENT - SIMV; BG VENT RATE 10 set
[2019-01-13 11:20] LABS: BG BASE EXCESS -3.2 mmol/L (-2.0-2.0); BG CARBOXYHEMOGLOBIN 0.3 % (0.5-1.5); BG DEOXYHEMOGLOBIN 1.7 % (0.0-5.0); BG FRACTION INSPIRED OXYGEN 30; BG HCO3 ACT 20.5 mmol/L (22.0-26.0); BG METHEMOGLOBIN 0.6 % (0.0-1.5); BG OXYGEN SATURATION 98.3 % (92.0-98.5); BG OXYHEMOGLOBIN 97.4 % (94.0-97.0); BG PCO2 31.2 mmHg (35.0-45.0); BG PH 7.435 (7.350-7.450); BG PO2 134.8 mmHg (75.0-100.0); BG PRESSURE SUPPORT 15; BG SAMPLE SITE RIGHT RADIAL; BG TIDAL VOLUME(mL) 500 mL; BG VENT MODE VENT - SIMV; BG VENT RATE 6 set
[2019-01-13] MEDS: ACETAMINOPHEN 325MG TABLET PO PRN (12:57)
[2019-01-13 13:13] LABS: BG BASE EXCESS -0.5 mmol/L (-2.0-2.0); BG CARBOXYHEMOGLOBIN 0.2 % (0.5-1.5); BG DEOXYHEMOGLOBIN 1.9 % (0.0-5.0); BG FRACTION INSPIRED OXYGEN 30; BG HCO3 ACT 23.5 mmol/L (22.0-26.0); BG METHEMOGLOBIN 0.3 % (0.0-1.5); BG OXYGEN SATURATION 98.1 % (92.0-98.5); BG OXYHEMOGLOBIN 97.6 % (94.0-97.0); BG PCO2 35.5 mmHg (35.0-45.0); BG PH 7.439 (7.350-7.450); BG PO2 118.2 mmHg (75.0-100.0); BG PRESSURE SUPPORT 15; BG SAMPLE SITE RIGHT RADIAL; BG VENT MODE VENT - CPAP
[2019-01-13] MEDS: METOCLOPRAMIDE HCL 10MG/2ML VIAL IV SCH (17:15)
[2019-01-14] VITALS (53 sets, daily range): BP systolic 82–130; BP diastolic 44–78
[2019-01-14] MEDS: IPRATROPIUM BROMIDE (0.02%) 0.5MG/2.5ML NEB HHN SCH ×6 (00:10→20:55)
[2019-01-14] MEDS: BLOOD SUGAR DIAGNOSTIC STRIP TEST SCH ×4 (00:40→17:27)
[2019-01-14] MEDS: METOCLOPRAMIDE HCL 10MG/2ML VIAL IV SCH ×4 (00:47→17:38)
[2019-01-14] MEDS: LINEZOLID 600 MG PREMIX 300 ML IV SCH ×2 (02:38→15:02)
[2019-01-14] MEDS: INSULIN LISPRO 100 UNITS/ML SUBCUT SCH ×4 (06:00→17:28)
[2019-01-14] MEDS: DILTIAZEM HCL 60MG TABLET PO SCH ×3 (06:37→21:38)
[2019-01-14 06:56] LABS: BASOPHILS % 0.9 % (0.0-2.0); EOSINOPHILS % 2.7 % (0.0-5.0); LYMPHOCYTES % 12.9 % (20.0-50.0); MEAN CORPUSCULAR HEMOGLOBIN 29.9 pg (28.0-32.0); MEAN CORPUSCULAR VOLUME 90.1 fL (80.0-94.0); MEAN PLATELET VOLUME 9.8 fl (7.4-10.4); MONOCYTES % 4.6 % (2.0-8.0); NEUTROPHILS % 78.9 % (40.0-76.0); PLATELET 100 x1000/uL (130-400); RED BLOOD CELL COUNT 2.31 mill/uL (4.7-6.1); RED CELL DISTRIBUTION WIDTH 17.1 % (11.6-14.6)
[2019-01-14 07:04] LABS: HEMOGLOBIN. 6.9 g/dL (14.0-18.0)
[2019-01-14 07:05] LABS: HEMATOCRIT. 20.8 % (42.0-52.0)
[2019-01-14 07:41] LABS: PHOSPHORUS 6.1 mg/dL (2.5-4.9)
[2019-01-14] MEDS: CALCIUM CARBONATE 1,250 MG/5 ML UDC PO SCH ×2 (08:32→17:38)
[2019-01-14] MEDS: PANTOPRAZOLE SODIUM 40 MG/VIAL IV SCH ×2 (08:33→21:34)
[2019-01-14 08:54] LABS: BG BASE EXCESS -1.3 mmol/L (-2.0-2.0); BG CARBOXYHEMOGLOBIN 0.6 % (0.5-1.5); BG DEOXYHEMOGLOBIN 1.6 % (0.0-5.0); BG FRACTION INSPIRED OXYGEN 30; BG HCO3 ACT 22.5 mmol/L (22.0-26.0); BG METHEMOGLOBIN 0.3 % (0.0-1.5); BG OXYGEN SATURATION 98.4 % (92.0-98.5); BG OXYHEMOGLOBIN 97.5 % (94.0-97.0); BG PCO2 33.4 mmHg (35.0-45.0); BG PH 7.447 (7.350-7.450); BG PO2 114.6 mmHg (75.0-100.0); BG SAMPLE SITE RIGHT RADIAL; BG TIDAL VOLUME(mL) 500 mL; BG TOTAL HEMOGLOBIN 7.1 g/dL (12.0-18.0); BG VENT MODE VENT - SIMV; BG VENT RATE 10 set
[2019-01-14] MEDS: CALCIUM ACETATE 667MG CAPSULE PO SCH ×2 (09:03→13:42)
[2019-01-14] MEDS: LORAZEPAM 2MG/ML CPJ IV PRN (10:45)
[2019-01-14] MEDS ORDERED: DIGOXIN 500MCG/2ML AMP IV NR (11:00)
[2019-01-14 19:11] LABS: HEMATOCRIT 24.8 % (42.0-52.0); HEMOGLOBIN 8.4 g/dL (14.0-18.0)
[2019-01-14] MEDS ORDERED: CEFTRIAXONE 2 G PREMIX 50 ML IV SCH (21:00)
[2019-01-14] MEDS: CEFTRIAXONE 2 G in DEXTROSE 5% WATER 50 ML IV SCH (21:38)
[2019-01-14] MEDS: CALCIUM ACETATE 667 MG/5 ML SOLUTION PO SCH (21:51)
[2019-01-14 23:58] LABS: HEMATOCRIT 22.1 % (42.0-52.0); HEMOGLOBIN 7.5 g/dL (14.0-18.0)
[2019-01-15] VITALS (50 sets, daily range): BP systolic 88–120; BP diastolic 48–78
[2019-01-15] MEDS: BLOOD SUGAR DIAGNOSTIC STRIP TEST SCH ×4 (00:24→17:31)
[2019-01-15] MEDS: METOCLOPRAMIDE HCL 10MG/2ML VIAL IV SCH ×4 (00:25→17:36)
[2019-01-15] MEDS: IPRATROPIUM BROMIDE (0.02%) 0.5MG/2.5ML NEB HHN SCH ×6 (00:35→20:25)
[2019-01-15] MEDS: INSULIN LISPRO 100 UNITS/ML SUBCUT SCH ×4 (06:00→17:31)
[2019-01-15 06:27] LABS: BASOPHILS % 0.7 % (0.0-2.0); EOSINOPHILS % 2.3 % (0.0-5.0); HEMATOCRIT. 23.4 % (42.0-52.0); LYMPHOCYTES % 10.9 % (20.0-50.0); MEAN CORPUSCULAR HEMOGLOBIN 30.5 pg (28.0-32.0); MEAN CORPUSCULAR VOLUME 89.4 fL (80.0-94.0); MEAN PLATELET VOLUME 9.2 fl (7.4-10.4); MONOCYTES % 5.4 % (2.0-8.0); NEUTROPHILS % 80.7 % (40.0-76.0); PLATELET 84 x1000/uL (130-400); RED BLOOD CELL COUNT 2.62 mill/uL (4.7-6.1); RED CELL DISTRIBUTION WIDTH 17.1 % (11.6-14.6)
[2019-01-15 06:31] LABS: PHOSPHORUS 6.9 mg/dL (2.5-4.9)
[2019-01-15] MEDS: DILTIAZEM HCL 60MG TABLET PO SCH ×3 (06:35→21:22)
[2019-01-15] MEDS: CALCIUM ACETATE 667 MG/5 ML SOLUTION PO SCH ×2 (08:11→13:21)
[2019-01-15] MEDS: CALCIUM CARBONATE 1,250 MG/5 ML UDC PO SCH ×2 (08:11→17:31)
[2019-01-15] MEDS: ACETAMINOPHEN 325MG TABLET PO PRN (08:12)
[2019-01-15 08:26] LABS: BG BASE EXCESS -5.4 mmol/L (-2.0-2.0); BG CARBOXYHEMOGLOBIN 0.9 % (0.5-1.5); BG DEOXYHEMOGLOBIN 1.8 % (0.0-5.0); BG FRACTION INSPIRED OXYGEN 30; BG HCO3 ACT 18.2 mmol/L (22.0-26.0); BG METHEMOGLOBIN 0.4 % (0.0-1.5); BG OXYGEN SATURATION 98.2 % (92.0-98.5); BG OXYHEMOGLOBIN 96.9 % (94.0-97.0); BG PCO2 28.3 mmHg (35.0-45.0); BG PH 7.426 (7.350-7.450); BG PO2 121.9 mmHg (75.0-100.0); BG SAMPLE SITE LEFT BRACHIAL; BG TIDAL VOLUME(mL) 500 mL; BG TOTAL HEMOGLOBIN 8.1 g/dL (12.0-18.0); BG VENT MODE VENT - A/C; BG VENT RATE 12 set
[2019-01-15] MEDS: CEFTRIAXONE 2 G in DEXTROSE 5% WATER 50 ML IV SCH ×2 (08:59→21:22)
[2019-01-15] MEDS: PANTOPRAZOLE SODIUM 40 MG/VIAL IV SCH ×2 (09:48→21:22)
[2019-01-15] MEDS: CALCIUM ACETATE 667MG CAPSULE PO SCH (18:20)
[2019-01-16] VITALS (68 sets, daily range): BP systolic 89–135; BP diastolic 53–84
[2019-01-16] MEDS: BLOOD SUGAR DIAGNOSTIC STRIP TEST SCH ×5 (00:21→23:56)
[2019-01-16] MEDS: IPRATROPIUM BROMIDE (0.02%) 0.5MG/2.5ML NEB HHN SCH ×6 (00:24→21:06)
[2019-01-16] MEDS: METOCLOPRAMIDE HCL 10MG/2ML VIAL IV SCH ×5 (00:25→23:56)
[2019-01-16] MEDS: DILTIAZEM HCL 60MG TABLET PO SCH ×3 (05:57→20:58)
[2019-01-16] MEDS: INSULIN LISPRO 100 UNITS/ML SUBCUT SCH ×5 (06:00→23:57)
[2019-01-16 06:21] LABS: CHLORIDE 106 mEq/L (98-107)
[2019-01-16 06:29] LABS: INR 1.4; PARTIAL THROMBOPLASTIN TIME 31.3 sec (23.4-31.0); PROTHROMBIN TIME 13.8 sec (9.6-11.0)
[2019-01-16 06:34] LABS: HEMATOCRIT. 27.3 % (42.0-52.0); HEMOGLOBIN. 9.2 g/dL (14.0-18.0); MEAN CORPUSCULAR HEMOGLOBIN 30.4 pg (28.0-32.0); MEAN CORPUSCULAR VOLUME 89.9 fL (80.0-94.0); MEAN PLATELET VOLUME 9.2 fl (7.4-10.4); PLATELET 88 x1000/uL (130-400); RED BLOOD CELL COUNT 3.04 mill/uL (4.7-6.1); RED CELL DISTRIBUTION WIDTH 16.8 % (11.6-14.6)
[2019-01-16 06:47] LABS: DIGOXIN 0.8 ng/mL (0.9-2.0)
[2019-01-16] MEDS: CALCIUM CARBONATE 1,250 MG/5 ML UDC PO SCH ×2 (07:49→17:35)
[2019-01-16] MEDS: CALCIUM ACETATE 667MG CAPSULE PO SCH ×3 (07:49→17:35)
[2019-01-16] MEDS: PANTOPRAZOLE SODIUM 40 MG/VIAL IV SCH ×2 (08:50→20:57)
[2019-01-16] MEDS: CEFTRIAXONE 2 G in DEXTROSE 5% WATER 50 ML IV SCH ×2 (08:56→20:58)
[2019-01-16] MEDS: MORPHINE SULFATE 2 MG/ML CPJ (NOT FOR IM USE) IV PRN ×2 (08:56→17:35)
[2019-01-16] MEDS: DILTIAZEM HCL 5MG/ML 5ML VIAL IV PRN ×2 (10:16→14:00)
[2019-01-16] MEDS: LORAZEPAM 2MG/ML CPJ IV PRN ×3 (11:21→20:58)
[2019-01-16 11:47] LABS: NUCLEATED RED BLOOD CELLS 1 /100 WBC; PLATELET ESTIMATE DECREASED
[2019-01-16] MEDS: PHYTONADIONE 10MG/ML AMP SUBCUT SCH (16:17)
[2019-01-16] MEDS: DIGOXIN 500MCG/2ML AMP IV SCH (17:34)
[2019-01-16] MEDS ORDERED: FENTANYL CITRATE/PF 50MCG/ML 2ML VIAL ONE (17:56)
[2019-01-16] MEDS ORDERED: MIDAZOLAM HCL 5 MG/5 ML VIAL ONE (17:56)
[2019-01-16] MEDS ORDERED: MIDAZOLAM HCL 2 MG/2 ML VIAL IV PRN (18:05)
[2019-01-16 20:57] LABS: HEMATOCRIT 22.3 % (42.0-52.0); HEMOGLOBIN 7.6 g/dL (14.0-18.0)
[2019-01-16 21:33] LABS: BASOPHILS % 0.6 % (0.0-2.0); EOSINOPHILS % 1.6 % (0.0-5.0); HEMATOCRIT. 22.4 % (42.0-52.0); HEMOGLOBIN. 7.5 g/dL (14.0-18.0); LYMPHOCYTES % 9.8 % (20.0-50.0); MEAN CORPUSCULAR VOLUME 89.1 fL (80.0-94.0); MEAN PLATELET VOLUME 9.6 fl (7.4-10.4); MONOCYTES % 6.7 % (2.0-8.0); NEUTROPHILS % 81.3 % (40.0-76.0); PLATELET 70 x1000/uL (130-400); RED BLOOD CELL COUNT 2.51 mill/uL (4.7-6.1)
[2019-01-17] VITALS (45 sets, daily range): BP systolic 93–129; BP diastolic 53–77
[2019-01-17] MEDS: DEXTROSE 50% WATER 50ML SYRINGE IV PRN (00:08)
[2019-01-17] MEDS: MORPHINE SULFATE 2 MG/ML CPJ (NOT FOR IM USE) IV PRN ×3 (00:30→11:14)
[2019-01-17] MEDS: IPRATROPIUM BROMIDE (0.02%) 0.5MG/2.5ML NEB HHN SCH ×6 (00:37→20:31)
[2019-01-17] MEDS: LORAZEPAM 2MG/ML CPJ IV PRN ×4 (03:37→16:09)
[2019-01-17] MEDS: DILTIAZEM HCL 5MG/ML 5ML VIAL IV PRN ×4 (03:46→20:40)
[2019-01-17] MEDS: DILTIAZEM HCL 60MG TABLET PO SCH ×3 (05:38→22:17)
[2019-01-17] MEDS: METOCLOPRAMIDE HCL 10MG/2ML VIAL IV SCH ×4 (05:38→23:09)
[2019-01-17] MEDS: BLOOD SUGAR DIAGNOSTIC STRIP TEST SCH ×4 (05:39→23:35)
[2019-01-17] MEDS: INSULIN LISPRO 100 UNITS/ML SUBCUT SCH ×4 (05:45→23:35)
[2019-01-17 06:05] LABS: BASOPHILS % 0.5 % (0.0-2.0); EOSINOPHILS % 1.9 % (0.0-5.0); HEMATOCRIT. 26.4 % (42.0-52.0); HEMOGLOBIN. 8.9 g/dL (14.0-18.0); LYMPHOCYTES % 8.3 % (20.0-50.0); MEAN CORPUSCULAR HEMOGLOBIN 29.8 pg (28.0-32.0); MEAN CORPUSCULAR VOLUME 88.7 fL (80.0-94.0); MEAN PLATELET VOLUME 9.5 fl (7.4-10.4); MONOCYTES % 7.3 % (2.0-8.0); PLATELET 72 x1000/uL (130-400); RED BLOOD CELL COUNT 2.97 mill/uL (4.7-6.1); RED CELL DISTRIBUTION WIDTH 16.3 % (11.6-14.6)
[2019-01-17 06:37] LABS: PHOSPHORUS 7.3 mg/dL (2.5-4.9)
[2019-01-17 06:55] LABS: DIGOXIN 1.1 ng/mL (0.9-2.0)
[2019-01-17] MEDS: CALCIUM ACETATE 667MG CAPSULE PO SCH ×3 (08:20→18:02)
[2019-01-17] MEDS: CALCIUM CARBONATE 1,250 MG/5 ML UDC PO SCH ×2 (08:20→18:02)
[2019-01-17 08:58] LABS: BG BASE EXCESS -4.6 mmol/L (-2.0-2.0); BG CARBOXYHEMOGLOBIN 0.3 % (0.5-1.5); BG DEOXYHEMOGLOBIN 1.6 % (0.0-5.0); BG FRACTION INSPIRED OXYGEN 30; BG HCO3 ACT 19.5 mmol/L (22.0-26.0); BG METHEMOGLOBIN 0.2 % (0.0-1.5); BG OXYGEN SATURATION 98.4 % (92.0-98.5); BG OXYHEMOGLOBIN 97.9 % (94.0-97.0); BG PCO2 32.9 mmHg (35.0-45.0); BG PH 7.391 (7.350-7.450); BG PO2 142.1 mmHg (75.0-100.0); BG SAMPLE SITE RIGHT RADIAL; BG TIDAL VOLUME(mL) 500 mL; BG TOTAL HEMOGLOBIN 11.6 g/dL (12.0-18.0); BG VENT MODE VENT - A/C; BG VENT RATE 12 set
[2019-01-17] MEDS: PANTOPRAZOLE SODIUM 40 MG/VIAL IV SCH ×2 (09:08→20:19)
[2019-01-17] MEDS: PHYTONADIONE 10MG/ML AMP SUBCUT SCH ×2 (09:08→22:16)
[2019-01-17] MEDS: DEXT 5%/0.45% NACL 1000ML 1,000 ML IV SCH ×2 (09:17→23:11)
[2019-01-17] MEDS: CEFTRIAXONE 2 G in DEXTROSE 5% WATER 50 ML IV SCH ×2 (13:11→20:20)
[2019-01-17] MEDS: DIGOXIN 500MCG/2ML AMP IV SCH (18:01)
[2019-01-17] MEDS ORDERED: ROCURONIUM BROMIDE 10MG/ML VIAL 5ML IV ONE ×2 (18:52→19:24)
[2019-01-17] MEDS ORDERED: SODIUM CHLORIDE 0.9% 10ML VIAL ONE (19:23)
[2019-01-17] MEDS ORDERED: LABETALOL HCL 5MG/ML VIAL 20ML IV ONE (19:26)
[2019-01-17] MEDS ORDERED: CEFAZOLIN SODIUM 1000MG/VIAL ONE (19:32)
[2019-01-18] VITALS (36 sets, daily range): BP systolic 98–126; BP diastolic 52–80
[2019-01-18 00:20] LABS: INR 1.2; PROTHROMBIN TIME 12.2 sec (9.6-11.0)
[2019-01-18] MEDS: IPRATROPIUM BROMIDE (0.02%) 0.5MG/2.5ML NEB HHN SCH ×6 (00:31→21:17)
[2019-01-18 00:42] LABS: CREATINE KINASE 62 IU/L (39-308)
[2019-01-18] MEDS: PHYTONADIONE 10MG/ML AMP SUBCUT SCH ×3 (05:19→21:46)
[2019-01-18] MEDS: METOCLOPRAMIDE HCL 10MG/2ML VIAL IV SCH ×3 (05:19→18:26)
[2019-01-18] MEDS: DILTIAZEM HCL 60MG TABLET PO SCH ×3 (05:20→21:48)
[2019-01-18 05:39] LABS: HEMATOCRIT. 22.8 % (42.0-52.0); HEMOGLOBIN. 7.7 g/dL (14.0-18.0); MEAN CORPUSCULAR HEMOGLOBIN 29.9 pg (28.0-32.0); MEAN CORPUSCULAR VOLUME 88.8 fL (80.0-94.0); MEAN PLATELET VOLUME 9.6 fl (7.4-10.4); RED BLOOD CELL COUNT 2.56 mill/uL (4.7-6.1); RED CELL DISTRIBUTION WIDTH 16.2 % (11.6-14.6)
[2019-01-18] MEDS: BLOOD SUGAR DIAGNOSTIC STRIP TEST SCH ×3 (05:41→18:27)
[2019-01-18] MEDS: INSULIN LISPRO 100 UNITS/ML SUBCUT SCH ×3 (05:42→18:00)
[2019-01-18 06:00] LABS: PLATELET 44 x1000/uL (130-400)
[2019-01-18 06:07] LABS: PHOSPHORUS 4.6 mg/dL (2.5-4.9)
[2019-01-18 06:23] LABS: DIGOXIN 1.1 ng/mL (0.9-2.0)
[2019-01-18 08:15] LABS: PLATELET ESTIMATE MARKEDLY DECREASED
[2019-01-18] MEDS: CALCIUM CARBONATE 1,250 MG/5 ML UDC PO SCH ×2 (08:20→18:00)
[2019-01-18] MEDS: CALCIUM ACETATE 667MG CAPSULE PO SCH ×3 (08:20→18:26)
[2019-01-18] MEDS: CEFTRIAXONE 2 G in DEXTROSE 5% WATER 50 ML IV SCH ×2 (09:10→21:45)
[2019-01-18] MEDS: PANTOPRAZOLE SODIUM 40 MG/VIAL IV SCH ×2 (09:10→21:45)
[2019-01-18] MEDS: DILTIAZEM HCL 5MG/ML 5ML VIAL IV PRN (12:42)
[2019-01-18] MEDS: NYSTATIN POWDER 15GM TOP SCH ×2 (14:31→17:00)
[2019-01-18] MEDS: DIGOXIN 500MCG/2ML AMP IV SCH (18:26)
[2019-01-19] VITALS (34 sets, daily range): BP systolic 104–127; BP diastolic 49–85
[2019-01-19] MEDS: IPRATROPIUM BROMIDE (0.02%) 0.5MG/2.5ML NEB HHN SCH ×6 (00:22→20:45)
[2019-01-19] MEDS: ACETAMINOPHEN 325MG TABLET PO PRN ×2 (00:38→15:50)
[2019-01-19] MEDS: METOCLOPRAMIDE HCL 10MG/2ML VIAL IV SCH ×5 (02:10→23:54)
[2019-01-19] MEDS: DEXT 5%/0.45% NACL 1000ML 1,000 ML IV SCH ×2 (02:11→21:00)
[2019-01-19 05:38] LABS: HEMOGLOBIN. 7.4 g/dL (14.0-18.0); MEAN CORPUSCULAR HEMOGLOBIN 29.8 pg (28.0-32.0); MEAN CORPUSCULAR VOLUME 88.9 fL (80.0-94.0); MEAN PLATELET VOLUME 8.8 fl (7.4-10.4); PLATELET 60 x1000/uL (130-400); RED BLOOD CELL COUNT 2.47 mill/uL (4.7-6.1); RED CELL DISTRIBUTION WIDTH 16.2 % (11.6-14.6)
[2019-01-19 05:49] LABS: PHOSPHORUS 5.7 mg/dL (2.5-4.9)
[2019-01-19 06:00] LABS: DIGOXIN 1.1 ng/mL (0.9-2.0)
[2019-01-19] MEDS: INSULIN LISPRO 100 UNITS/ML SUBCUT SCH ×5 (06:00→23:54)
[2019-01-19] MEDS: BLOOD SUGAR DIAGNOSTIC STRIP TEST SCH ×5 (06:00→23:54)
[2019-01-19] MEDS: DILTIAZEM HCL 60MG TABLET PO SCH ×3 (07:06→22:00)
[2019-01-19] MEDS: PHYTONADIONE 10MG/ML AMP SUBCUT SCH ×3 (07:07→22:10)
[2019-01-19] MEDS: CALCIUM ACETATE 667MG CAPSULE PO SCH ×3 (09:05→18:49)
[2019-01-19] MEDS: PANTOPRAZOLE SODIUM 40 MG/VIAL IV SCH ×2 (09:05→22:09)
[2019-01-19] MEDS: NYSTATIN POWDER 15GM TOP SCH ×3 (09:06→18:58)
[2019-01-19] MEDS: CEFTRIAXONE 2 G in DEXTROSE 5% WATER 50 ML IV SCH ×2 (09:06→22:09)
[2019-01-19] MEDS: CALCIUM CARBONATE 1,250 MG/5 ML UDC PO SCH ×2 (12:28→18:00)
[2019-01-19] MEDS: LORAZEPAM 2MG/ML CPJ IV PRN ×2 (15:46→20:02)
[2019-01-19] MEDS: DIGOXIN 500MCG/2ML AMP IV SCH (18:49)
[2019-01-19] MEDS ORDERED: VANCOMYCIN 1250MG in DEXTROSE 5% WATER 250ML IV SCH (20:00)
[2019-01-19 21:16] LABS: PLATELET ESTIMATE DECREASED
[2019-01-20] VITALS (17 sets, daily range): BP systolic 97–128; BP diastolic 62–79
[2019-01-20] MEDS: IPRATROPIUM BROMIDE (0.02%) 0.5MG/2.5ML NEB HHN SCH ×7 (00:32→23:50)
[2019-01-20 02:19] LABS: BASOPHILS % 0.9 % (0.0-2.0); EOSINOPHILS % 3.7 % (0.0-5.0); LYMPHOCYTES % 7.8 % (20.0-50.0); MEAN CORPUSCULAR HEMOGLOBIN 29.4 pg (28.0-32.0); MEAN CORPUSCULAR VOLUME 89.9 fL (80.0-94.0); MEAN PLATELET VOLUME 10.4 fl (7.4-10.4); MONOCYTES % 11.3 % (2.0-8.0); NEUTROPHILS % 76.3 % (40.0-76.0); PLATELET 65 x1000/uL (130-400); RED BLOOD CELL COUNT 2.11 mill/uL (4.7-6.1); RED CELL DISTRIBUTION WIDTH 16.2 % (11.6-14.6)
[2019-01-20 02:25] LABS: HEMATOCRIT. 18.9 % (42.0-52.0); HEMOGLOBIN. 6.2 g/dL (14.0-18.0)
[2019-01-20] MEDS: DILTIAZEM HCL 5MG/ML 5ML VIAL IV PRN (03:24)
[2019-01-20 05:24] LABS: MEAN CORPUSCULAR HEMOGLOBIN 29.5 pg (28.0-32.0); MEAN CORPUSCULAR VOLUME 90.5 fL (80.0-94.0); MEAN PLATELET VOLUME 10.2 fl (7.4-10.4); PLATELET 71 x1000/uL (130-400); RED BLOOD CELL COUNT 2.17 mill/uL (4.7-6.1); RED CELL DISTRIBUTION WIDTH 15.9 % (11.6-14.6)
[2019-01-20 05:36] LABS: PHOSPHORUS 3.5 mg/dL (2.5-4.9)
[2019-01-20 05:37] LABS: HEMOGLOBIN. 6.4 g/dL (14.0-18.0)
[2019-01-20 05:38] LABS: HEMATOCRIT. 19.7 % (42.0-52.0)
[2019-01-20] MEDS: INSULIN LISPRO 100 UNITS/ML SUBCUT SCH ×4 (06:00→23:43)
[2019-01-20] MEDS: DILTIAZEM HCL 60MG TABLET PO SCH ×3 (06:00→22:19)
[2019-01-20] MEDS: BLOOD SUGAR DIAGNOSTIC STRIP TEST SCH ×4 (06:59→23:37)
[2019-01-20] MEDS: METOCLOPRAMIDE HCL 10MG/2ML VIAL IV SCH ×4 (06:59→23:36)
[2019-01-20] MEDS: PHYTONADIONE 10MG/ML AMP SUBCUT SCH (06:59)
[2019-01-20] MEDS: CEFTRIAXONE 2 G in DEXTROSE 5% WATER 50 ML IV SCH ×2 (08:29→22:18)
[2019-01-20] MEDS: CALCIUM CARBONATE 1,250 MG/5 ML UDC PO SCH ×2 (08:29→18:03)
[2019-01-20] MEDS: PANTOPRAZOLE SODIUM 40 MG/VIAL IV SCH ×2 (08:30→22:18)
[2019-01-20] MEDS: NYSTATIN POWDER 15GM TOP SCH ×3 (08:30→16:44)
[2019-01-20] MEDS: CALCIUM ACETATE 667MG CAPSULE PO SCH ×3 (08:30→18:03)
[2019-01-20 12:26] LABS: HEMOGLOBIN 7.6 g/dL (14.0-18.0); MEAN CORPUSCULAR HEMOGLOBIN 29.9 pg (28.0-32.0); MEAN CORPUSCULAR VOLUME 90.4 fL (80.0-94.0); PLATELET 71 x1000/uL (130-400); RED BLOOD CELL COUNT 2.55 mill/uL (4.7-6.1); RED CELL DISTRIBUTION WIDTH 15.7 % (11.6-14.6)
[2019-01-20 12:35] LABS: INR 1.2; PROTHROMBIN TIME 12.1 sec (9.6-11.0)
[2019-01-20] MEDS: LORAZEPAM 2MG/ML CPJ IV PRN ×2 (16:43→22:27)
[2019-01-20] MEDS: DEXT 5%/0.45% NACL 1000ML 1,000 ML IV SCH (16:43)
[2019-01-20] MEDS: DIGOXIN 500MCG/2ML AMP IV SCH (18:04)
[2019-01-20 23:21] LABS: HEMOGLOBIN 7.1 g/dL (14.0-18.0); MEAN CORPUSCULAR HEMOGLOBIN 30.6 pg (28.0-32.0); MEAN CORPUSCULAR VOLUME 89.7 fL (80.0-94.0); PLATELET 78 x1000/uL (130-400); RED BLOOD CELL COUNT 2.33 mill/uL (4.7-6.1); RED CELL DISTRIBUTION WIDTH 15.8 % (11.6-14.6)
[2019-01-20 23:39] LABS: HEMATOCRIT 20.9 % (42.0-52.0)
[2019-01-21] VITALS (16 sets, daily range): BP systolic 110–136; BP diastolic 64–84
[2019-01-21] MEDS: IPRATROPIUM BROMIDE (0.02%) 0.5MG/2.5ML NEB HHN SCH ×4 (04:22→20:15)
[2019-01-21] MEDS: METOCLOPRAMIDE HCL 10MG/2ML VIAL IV SCH ×3 (05:29→17:47)
[2019-01-21] MEDS: DILTIAZEM HCL 60MG TABLET PO SCH ×3 (05:30→21:56)
[2019-01-21] MEDS: BLOOD SUGAR DIAGNOSTIC STRIP TEST SCH ×3 (05:31→17:46)
[2019-01-21] MEDS: INSULIN LISPRO 100 UNITS/ML SUBCUT SCH ×3 (05:38→17:46)
[2019-01-21] MEDS: PANTOPRAZOLE SODIUM 40 MG/VIAL IV SCH ×2 (10:16→21:54)
[2019-01-21] MEDS: CALCIUM ACETATE 667MG CAPSULE PO SCH ×3 (10:17→17:46)
[2019-01-21] MEDS: ACETAMINOPHEN 325MG TABLET PO PRN ×2 (10:17→20:31)
[2019-01-21] MEDS: CALCIUM CARBONATE 1,250 MG/5 ML UDC PO SCH ×2 (10:17→17:47)
[2019-01-21] MEDS: NYSTATIN POWDER 15GM TOP SCH ×3 (10:19→16:34)
[2019-01-21] MEDS: CEFTRIAXONE 2 G in DEXTROSE 5% WATER 50 ML IV SCH ×2 (10:19→21:54)
[2019-01-21 10:36] LABS: BASOPHILS % 1.1 % (0.0-2.0); EOSINOPHILS % 5.4 % (0.0-5.0); HEMATOCRIT. 25.1 % (42.0-52.0); HEMOGLOBIN. 8.6 g/dL (14.0-18.0); LYMPHOCYTES % 7.1 % (20.0-50.0); MEAN CORPUSCULAR HEMOGLOBIN 30.6 pg (28.0-32.0); MEAN CORPUSCULAR VOLUME 89.3 fL (80.0-94.0); MEAN PLATELET VOLUME 10.6 fl (7.4-10.4); MONOCYTES % 8.8 % (2.0-8.0); NEUTROPHILS % 77.6 % (40.0-76.0); PLATELET 108 x1000/uL (130-400); RED BLOOD CELL COUNT 2.82 mill/uL (4.7-6.1); RED CELL DISTRIBUTION WIDTH 15.7 % (11.6-14.6)
[2019-01-21 10:43] LABS: INR 1.2; PROTHROMBIN TIME 11.8 sec (9.6-11.0)
[2019-01-21] MEDS: DILTIAZEM HCL 5MG/ML 5ML VIAL IV PRN ×2 (11:20→20:26)
[2019-01-21] MEDS: DEXT 5%/0.45% NACL 1000ML 1,000 ML IV SCH (11:26)
[2019-01-21 13:34] LABS: PLATELET ESTIMATE SLIGHTLY DECREASED
[2019-01-21] MEDS ORDERED: VANCOMYCIN 500 MG PREMIX 100 ML IV SCH (14:00)
[2019-01-21] MEDS: MORPHINE SULFATE 2 MG/ML CPJ (NOT FOR IM USE) IV PRN (16:26)
[2019-01-21] MEDS: DIGOXIN 500MCG/2ML AMP IV SCH (17:47)
[2019-01-21] MEDS: LORAZEPAM 2MG/ML CPJ IM PRN (19:01)
[2019-01-21 19:58] LABS: HEMATOCRIT 23.7 % (42.0-52.0); MEAN CORPUSCULAR HEMOGLOBIN 30.7 pg (28.0-32.0); MEAN CORPUSCULAR VOLUME 90.3 fL (80.0-94.0); PLATELET 118 x1000/uL (130-400); RED BLOOD CELL COUNT 2.62 mill/uL (4.7-6.1); RED CELL DISTRIBUTION WIDTH 15.6 % (11.6-14.6)
[2019-01-21 23:14] LABS: HEMATOCRIT 22.7 % (42.0-52.0); HEMOGLOBIN 7.7 g/dL (14.0-18.0); MEAN CORPUSCULAR HEMOGLOBIN 30.5 pg (28.0-32.0); MEAN CORPUSCULAR VOLUME 90.4 fL (80.0-94.0); PLATELET 104 x1000/uL (130-400); RED BLOOD CELL COUNT 2.51 mill/uL (4.7-6.1); RED CELL DISTRIBUTION WIDTH 15.8 % (11.6-14.6)
[2019-01-22] VITALS (19 sets, daily range): BP systolic 105–140; BP diastolic 56–86
[2019-01-22] MEDS: IPRATROPIUM BROMIDE (0.02%) 0.5MG/2.5ML NEB HHN SCH ×6 (00:14→20:30)
[2019-01-22] MEDS: BLOOD SUGAR DIAGNOSTIC STRIP TEST SCH ×4 (00:28→17:26)
[2019-01-22] MEDS: METOCLOPRAMIDE HCL 10MG/2ML VIAL IV SCH ×5 (00:45→23:53)
[2019-01-22] MEDS: INSULIN LISPRO 100 UNITS/ML SUBCUT SCH ×4 (06:00→17:39)
[2019-01-22 06:14] LABS: BASOPHILS % 1.3 % (0.0-2.0); HEMATOCRIT. 22.6 % (42.0-52.0); HEMOGLOBIN. 7.6 g/dL (14.0-18.0); LYMPHOCYTES % 9.5 % (20.0-50.0); MEAN CORPUSCULAR HEMOGLOBIN 30.4 pg (28.0-32.0); MEAN CORPUSCULAR VOLUME 90.6 fL (80.0-94.0); MEAN PLATELET VOLUME 11.2 fl (7.4-10.4); NEUTROPHILS % 73.2 % (40.0-76.0); PLATELET 129 x1000/uL (130-400)
[2019-01-22 06:33] LABS: PHOSPHORUS 4.2 mg/dL (2.5-4.9)
[2019-01-22] MEDS: DILTIAZEM HCL 60MG TABLET PO SCH ×3 (06:33→22:00)
[2019-01-22] MEDS: DEXT 5%/0.45% NACL 1000ML 1,000 ML IV SCH (08:38)
[2019-01-22] MEDS: PANTOPRAZOLE SODIUM 40 MG/VIAL IV SCH ×2 (08:59→22:08)
[2019-01-22] MEDS: CALCIUM CARBONATE 1,250 MG/5 ML UDC PO SCH ×2 (08:59→17:31)
[2019-01-22] MEDS: CALCIUM ACETATE 667MG CAPSULE PO SCH ×3 (08:59→17:31)
[2019-01-22] MEDS: NYSTATIN POWDER 15GM TOP SCH ×3 (09:00→17:31)
[2019-01-22] MEDS ORDERED: LIDOCAINE HCL 1% 20ML VIAL (Pyxis) INJ ONE (09:05)
[2019-01-22] MEDS: LORAZEPAM 2MG/ML CPJ IM PRN (09:12)
[2019-01-22] MEDS: MORPHINE SULFATE 2 MG/ML CPJ (NOT FOR IM USE) IV PRN (10:16)
[2019-01-22] MEDS ORDERED: LIDOCAINE HCL/EPINEPHRINE 1%-EPI 1:100,000 20 ML VIAL INFIL NR (14:00)
[2019-01-22] MEDS: DILTIAZEM HCL 5MG/ML 5ML VIAL IV PRN (14:46)
[2019-01-22 16:33] LABS: HEMATOCRIT 22.1 % (42.0-52.0); HEMOGLOBIN 7.2 g/dL (14.0-18.0)
[2019-01-22] MEDS: DIGOXIN 500MCG/2ML AMP IV SCH (17:40)
[2019-01-22] MEDS: ACETAMINOPHEN 325MG TABLET PO PRN (17:59)
[2019-01-22] MEDS ORDERED: VANCOMYCIN 500 MG PREMIX 100 ML IV SCH (21:00)
[2019-01-23] VITALS (17 sets, daily range): BP systolic 110–150; BP diastolic 56–81
[2019-01-23 00:05] LABS: HEMATOCRIT 19.9 % (42.0-52.0); HEMOGLOBIN 6.6 g/dL (14.0-18.0)
[2019-01-23] MEDS: BLOOD SUGAR DIAGNOSTIC STRIP TEST SCH ×5 (00:32→23:37)
[2019-01-23 01:09] LABS: HEMATOCRIT 20.1 % (42.0-52.0); HEMOGLOBIN 6.6 g/dL (14.0-18.0)
[2019-01-23] MEDS: IPRATROPIUM BROMIDE (0.02%) 0.5MG/2.5ML NEB HHN SCH ×6 (04:35→20:25)
[2019-01-23] MEDS: METOCLOPRAMIDE HCL 10MG/2ML VIAL IV SCH ×4 (05:53→23:37)
[2019-01-23] MEDS: DILTIAZEM HCL 60MG TABLET PO SCH ×3 (05:57→21:40)
[2019-01-23] MEDS: INSULIN LISPRO 100 UNITS/ML SUBCUT SCH ×5 (06:00→23:37)
[2019-01-23] MEDS: CALCIUM ACETATE 667MG CAPSULE PO SCH ×3 (08:52→18:17)
[2019-01-23] MEDS: CALCIUM CARBONATE 1,250 MG/5 ML UDC PO SCH ×2 (08:52→18:17)
[2019-01-23] MEDS: NYSTATIN POWDER 15GM TOP SCH ×3 (08:52→18:18)
[2019-01-23] MEDS: PANTOPRAZOLE SODIUM 40 MG/VIAL IV SCH ×2 (08:52→21:40)
[2019-01-23] MEDS: LORAZEPAM 2MG/ML CPJ IM PRN ×3 (10:05→21:40)
[2019-01-23 13:24] LABS: HEMATOCRIT 24.6 % (42.0-52.0); HEMOGLOBIN 8.3 g/dL (14.0-18.0)
[2019-01-23 14:08] LABS: BASOPHILS % 0.8 % (0.0-2.0); EOSINOPHILS % 3.5 % (0.0-5.0); HEMATOCRIT. 24.9 % (42.0-52.0); HEMOGLOBIN. 8.3 g/dL (14.0-18.0); MEAN CORPUSCULAR HEMOGLOBIN 29.7 pg (28.0-32.0); MEAN CORPUSCULAR VOLUME 89.3 fL (80.0-94.0); MEAN PLATELET VOLUME 10.7 fl (7.4-10.4); MONOCYTES % 9.4 % (2.0-8.0); NEUTROPHILS % 75.3 % (40.0-76.0); PLATELET 100 x1000/uL (130-400); RED BLOOD CELL COUNT 2.79 mill/uL (4.7-6.1); RED CELL DISTRIBUTION WIDTH 15.1 % (11.6-14.6)
[2019-01-23 14:32] LABS: PHOSPHORUS 4.9 mg/dL (2.5-4.9)
[2019-01-23 16:54] LABS: BASOPHILS % 1.1 % (0.0-2.0); EOSINOPHILS % 3.6 % (0.0-5.0); HEMATOCRIT. 23.8 % (42.0-52.0); HEMOGLOBIN. 7.8 g/dL (14.0-18.0); LYMPHOCYTES % 10.8 % (20.0-50.0); MEAN CORPUSCULAR HEMOGLOBIN 29.5 pg (28.0-32.0); MEAN CORPUSCULAR VOLUME 89.3 fL (80.0-94.0); MEAN PLATELET VOLUME 11.2 fl (7.4-10.4); NEUTROPHILS % 76.5 % (40.0-76.0); PLATELET 122 x1000/uL (130-400); RED BLOOD CELL COUNT 2.66 mill/uL (4.7-6.1); RED CELL DISTRIBUTION WIDTH 14.8 % (11.6-14.6)
[2019-01-23] MEDS: DIGOXIN 500MCG/2ML AMP IV SCH (18:17)
[2019-01-23 19:22] LABS: HEMATOCRIT 26.1 % (42.0-52.0); HEMOGLOBIN 8.9 g/dL (14.0-18.0)
[2019-01-23] MEDS: MORPHINE SULFATE 2 MG/ML CPJ (NOT FOR IM USE) IV PRN (22:07)
[2019-01-24] VITALS (26 sets, daily range): BP systolic 102–148; BP diastolic 52–84
[2019-01-24] MEDS: ACETAMINOPHEN 325MG TABLET PO PRN (00:52)
[2019-01-24] MEDS: LORAZEPAM 2MG/ML CPJ IM PRN ×2 (01:01→13:54)
[2019-01-24 02:14] LABS: HEMOGLOBIN 7.5 g/dL (14.0-18.0)
[2019-01-24] MEDS: IPRATROPIUM BROMIDE (0.02%) 0.5MG/2.5ML NEB HHN SCH ×4 (04:29→20:41)
[2019-01-24] MEDS: METOCLOPRAMIDE HCL 10MG/2ML VIAL IV SCH ×4 (05:14→23:43)
[2019-01-24] MEDS: INSULIN LISPRO 100 UNITS/ML SUBCUT SCH ×4 (05:15→23:43)
[2019-01-24] MEDS: DILTIAZEM HCL 60MG TABLET PO SCH ×3 (05:15→22:00)
[2019-01-24] MEDS: BLOOD SUGAR DIAGNOSTIC STRIP TEST SCH ×4 (05:15→23:43)
[2019-01-24] MEDS: CALCIUM CARBONATE 1,250 MG/5 ML UDC PO SCH ×2 (09:46→17:36)
[2019-01-24] MEDS: PANTOPRAZOLE SODIUM 40 MG/VIAL IV SCH ×2 (09:47→22:11)
[2019-01-24] MEDS: CALCIUM ACETATE 667MG CAPSULE PO SCH ×3 (09:47→17:36)
[2019-01-24] MEDS: NYSTATIN POWDER 15GM TOP SCH ×3 (09:56→17:35)
[2019-01-24] MEDS: DEXT 5%/0.45% NACL 1000ML 1,000 ML IV SCH (09:56)
[2019-01-24 10:13] LABS: BASOPHILS % 0.5 % (0.0-2.0); EOSINOPHILS % 1.9 % (0.0-5.0); HEMATOCRIT. 23.9 % (42.0-52.0); HEMOGLOBIN. 7.9 g/dL (14.0-18.0); LYMPHOCYTES % 12.5 % (20.0-50.0); MEAN CORPUSCULAR HEMOGLOBIN 29.3 pg (28.0-32.0); MEAN CORPUSCULAR VOLUME 88.5 fL (80.0-94.0); MEAN PLATELET VOLUME 10.7 fl (7.4-10.4); MONOCYTES % 7.3 % (2.0-8.0); NEUTROPHILS % 77.8 % (40.0-76.0); PLATELET 115 x1000/uL (130-400); RED CELL DISTRIBUTION WIDTH 15.1 % (11.6-14.6)
[2019-01-24] MEDS: IPRATROPIUM/ALBUTEROL 0.5-3(2.5)MG/3ML NEB HHN PRN ×2 (11:49→15:43)
[2019-01-24] MEDS: DIGOXIN 500MCG/2ML AMP IV SCH (17:36)
[2019-01-24 17:55] LABS: PHOSPHORUS 4.5 mg/dL (2.5-4.9)
[2019-01-24] MEDS ORDERED: VANCOMYCIN 500 MG PREMIX 100 ML IV NR (18:00)
[2019-01-24 21:15] LABS: HEMATOCRIT 48.9 % (42.0-52.0); HEMOGLOBIN 16.2 g/dL (14.0-18.0)
[2019-01-24] MEDS: MORPHINE SULFATE 2 MG/ML CPJ (NOT FOR IM USE) IV PRN (22:12)
[2019-01-25] VITALS (12 sets, daily range): BP systolic 103–145; BP diastolic 56–81
[2019-01-25] MEDS: IPRATROPIUM BROMIDE (0.02%) 0.5MG/2.5ML NEB HHN SCH ×4 (02:10→20:37)
[2019-01-25] MEDS: MORPHINE SULFATE 2 MG/ML CPJ (NOT FOR IM USE) IV PRN ×2 (02:31→11:58)
[2019-01-25] MEDS: LORAZEPAM 2MG/ML CPJ IM PRN ×3 (04:04→22:12)
[2019-01-25] MEDS: DEXT 5%/0.45% NACL 1000ML 1,000 ML IV SCH ×2 (04:04→17:46)
[2019-01-25] MEDS: METOCLOPRAMIDE HCL 10MG/2ML VIAL IV SCH ×4 (05:53→23:40)
[2019-01-25] MEDS: INSULIN LISPRO 100 UNITS/ML SUBCUT SCH ×3 (05:54→16:54)
[2019-01-25] MEDS: BLOOD SUGAR DIAGNOSTIC STRIP TEST SCH ×4 (05:54→23:40)
[2019-01-25] MEDS: DILTIAZEM HCL 60MG TABLET PO SCH ×3 (05:54→22:11)
[2019-01-25 07:59] LABS: BASOPHILS % 0.4 % (0.0-2.0); EOSINOPHILS % 2.7 % (0.0-5.0); HEMATOCRIT. 25.1 % (42.0-52.0); HEMOGLOBIN. 8.4 g/dL (14.0-18.0); LYMPHOCYTES % 8.8 % (20.0-50.0); MEAN CORPUSCULAR HEMOGLOBIN 29.9 pg (28.0-32.0); MEAN CORPUSCULAR VOLUME 89.3 fL (80.0-94.0); MEAN PLATELET VOLUME 10.2 fl (7.4-10.4); MONOCYTES % 6.6 % (2.0-8.0); NEUTROPHILS % 81.5 % (40.0-76.0); PLATELET 118 x1000/uL (130-400); RED BLOOD CELL COUNT 2.81 mill/uL (4.7-6.1); RED CELL DISTRIBUTION WIDTH 15.2 % (11.6-14.6)
[2019-01-25 08:25] LABS: PHOSPHORUS 4.8 mg/dL (2.5-4.9)
[2019-01-25] MEDS: CALCIUM CARBONATE 1,250 MG/5 ML UDC PO SCH ×2 (09:01→16:53)
[2019-01-25] MEDS: NYSTATIN POWDER 15GM TOP SCH ×3 (09:01→16:55)
[2019-01-25] MEDS: PANTOPRAZOLE SODIUM 40 MG/VIAL IV SCH ×2 (09:02→22:10)
[2019-01-25] MEDS: CALCIUM ACETATE 667MG CAPSULE PO SCH ×3 (09:02→16:53)
[2019-01-25] MEDS: RIFAXIMIN 550 MG TABLET PO SCH (16:53)
[2019-01-25] MEDS: DIGOXIN 500MCG/2ML AMP IV SCH (16:54)
[2019-01-26] VITALS (12 sets, daily range): BP systolic 108–144; BP diastolic 54–100
[2019-01-26] MEDS: MORPHINE SULFATE 2 MG/ML CPJ (NOT FOR IM USE) IV PRN ×4 (00:01→22:15)
[2019-01-26] MEDS: IPRATROPIUM BROMIDE (0.02%) 0.5MG/2.5ML NEB HHN SCH ×4 (01:49→19:57)
[2019-01-26] MEDS: METOCLOPRAMIDE HCL 10MG/2ML VIAL IV SCH ×3 (05:48→18:10)
[2019-01-26] MEDS: RIFAXIMIN 550 MG TABLET PO SCH (05:49)
[2019-01-26] MEDS: DILTIAZEM HCL 60MG TABLET PO SCH ×3 (05:49→22:47)
[2019-01-26] MEDS: BLOOD SUGAR DIAGNOSTIC STRIP TEST SCH ×3 (05:49→17:53)
[2019-01-26] MEDS: INSULIN LISPRO 100 UNITS/ML SUBCUT SCH ×4 (05:50→17:53)
[2019-01-26 06:09] LABS: BASOPHILS % 0.7 % (0.0-2.0); EOSINOPHILS % 2.9 % (0.0-5.0); HEMATOCRIT. 25.7 % (42.0-52.0); HEMOGLOBIN. 8.5 g/dL (14.0-18.0); LYMPHOCYTES % 9.9 % (20.0-50.0); MEAN CORPUSCULAR HEMOGLOBIN 30.1 pg (28.0-32.0); MEAN CORPUSCULAR VOLUME 90.7 fL (80.0-94.0); MEAN PLATELET VOLUME 10.2 fl (7.4-10.4); MONOCYTES % 7.5 % (2.0-8.0); PLATELET 140 x1000/uL (130-400); RED BLOOD CELL COUNT 2.83 mill/uL (4.7-6.1); RED CELL DISTRIBUTION WIDTH 15.3 % (11.6-14.6)
[2019-01-26 06:55] LABS: PHOSPHORUS 4.8 mg/dL (2.5-4.9)
[2019-01-26] MEDS: LORAZEPAM 2MG/ML CPJ IM PRN (08:55)
[2019-01-26] MEDS: CALCIUM ACETATE 667MG CAPSULE PO SCH ×3 (08:55→18:18)
[2019-01-26] MEDS: CALCIUM CARBONATE 1,250 MG/5 ML UDC PO SCH ×2 (08:55→18:10)
[2019-01-26] MEDS: PANTOPRAZOLE SODIUM 40 MG/VIAL IV SCH (08:55)
[2019-01-26] MEDS: NYSTATIN POWDER 15GM TOP SCH ×3 (09:00→17:00)
[2019-01-26] MEDS: DILTIAZEM HCL 5MG/ML 5ML VIAL IV PRN (13:24)
[2019-01-26] MEDS: DEXT 5%/0.45% NACL 1000ML 1,000 ML IV SCH (13:57)
[2019-01-26] MEDS: CALCITRIOL 0.25MCG CAPSULE PO SCH (17:00)
[2019-01-26] MEDS: DIGOXIN 500MCG/2ML AMP IV SCH (18:10)
[2019-01-26] MEDS ORDERED: AMIODARONE HCL 200 MG TABLET PO SCH (21:00)
[2019-01-26] MEDS: LORAZEPAM 2MG/ML CPJ IV PRN (22:14)
[2019-01-26] MEDS: AMIODARONE HCL 200 MG TABLET PO SCH (22:44)
[2019-01-27] VITALS (12 sets, daily range): BP systolic 97–155; BP diastolic 40–95
[2019-01-27] MEDS: METOCLOPRAMIDE HCL 10MG/2ML VIAL IV SCH ×4 (00:08→18:30)
[2019-01-27] MEDS: IPRATROPIUM BROMIDE (0.02%) 0.5MG/2.5ML NEB HHN SCH ×4 (03:53→20:45)
[2019-01-27] MEDS: AMIODARONE HCL 200 MG TABLET PO SCH ×3 (05:32→22:51)
[2019-01-27] MEDS: DILTIAZEM HCL 60MG TABLET PO SCH ×3 (05:32→22:51)
[2019-01-27] MEDS: BLOOD SUGAR DIAGNOSTIC STRIP TEST SCH ×4 (05:35→17:59)
[2019-01-27] MEDS: INSULIN LISPRO 100 UNITS/ML SUBCUT SCH ×4 (05:49→17:59)
[2019-01-27 06:42] LABS: EOSINOPHILS % 2.6 % (0.0-5.0); HEMATOCRIT. 25.3 % (42.0-52.0); HEMOGLOBIN. 8.5 g/dL (14.0-18.0); LYMPHOCYTES % 14.7 % (20.0-50.0); MEAN CORPUSCULAR HEMOGLOBIN 30.8 pg (28.0-32.0); MEAN CORPUSCULAR VOLUME 92.1 fL (80.0-94.0); MEAN PLATELET VOLUME 9.9 fl (7.4-10.4); MONOCYTES % 7.4 % (2.0-8.0); NEUTROPHILS % 74.3 % (40.0-76.0); PLATELET 158 x1000/uL (130-400); RED BLOOD CELL COUNT 2.75 mill/uL (4.7-6.1); RED CELL DISTRIBUTION WIDTH 15.5 % (11.6-14.6)
[2019-01-27 07:49] LABS: PHOSPHORUS 3.5 mg/dL (2.5-4.9)
[2019-01-27] MEDS: NYSTATIN POWDER 15GM TOP SCH ×3 (09:00→16:14)
[2019-01-27] MEDS: CALCIUM CARBONATE 1,250 MG/5 ML UDC PO SCH ×3 (10:03→18:30)
[2019-01-27] MEDS: CALCIUM ACETATE 667MG CAPSULE PO SCH ×3 (10:03→18:30)
[2019-01-27] MEDS: CALCITRIOL 0.25MCG CAPSULE PO SCH (10:03)
[2019-01-27] MEDS: DEXT 5%/0.45% NACL 1000ML 1,000 ML IV SCH (16:12)
[2019-01-27] MEDS: LORAZEPAM 2MG/ML CPJ IV PRN (23:22)
[2019-01-27] MEDS: MORPHINE SULFATE 2 MG/ML CPJ (NOT FOR IM USE) IV PRN (23:22)
[2019-01-28] VITALS (18 sets, daily range): BP systolic 111–155; BP diastolic 46–69
[2019-01-28] MEDS: METOCLOPRAMIDE HCL 10MG/2ML VIAL IV SCH ×4 (00:11→17:59)
[2019-01-28] MEDS: IPRATROPIUM BROMIDE (0.02%) 0.5MG/2.5ML NEB HHN SCH ×4 (01:10→20:30)
[2019-01-28] MEDS: AMIODARONE HCL 200 MG TABLET PO SCH ×3 (05:32→21:47)
[2019-01-28] MEDS: DILTIAZEM HCL 60MG TABLET PO SCH ×3 (05:32→21:48)
[2019-01-28] MEDS: BLOOD SUGAR DIAGNOSTIC STRIP TEST SCH ×4 (05:41→17:53)
[2019-01-28] MEDS: INSULIN LISPRO 100 UNITS/ML SUBCUT SCH ×4 (05:45→17:52)
[2019-01-28 06:06] LABS: BASOPHILS % 1.1 % (0.0-2.0); EOSINOPHILS % 3.2 % (0.0-5.0); MEAN CORPUSCULAR HEMOGLOBIN 30.8 pg (28.0-32.0); MEAN CORPUSCULAR VOLUME 91.4 fL (80.0-94.0); MEAN PLATELET VOLUME 9.9 fl (7.4-10.4); MONOCYTES % 8.7 % (2.0-8.0); PLATELET 143 x1000/uL (130-400); RED CELL DISTRIBUTION WIDTH 15.7 % (11.6-14.6)
[2019-01-28] MEDS: LORAZEPAM 2MG/ML CPJ IV PRN ×2 (06:39→21:47)
[2019-01-28] MEDS: MORPHINE SULFATE 2 MG/ML CPJ (NOT FOR IM USE) IV PRN (06:39)
[2019-01-28 06:44] LABS: PHOSPHORUS 3.9 mg/dL (2.5-4.9)
[2019-01-28 06:47] LABS: HEMOGLOBIN. 6.8 g/dL (14.0-18.0)
[2019-01-28 06:48] LABS: HEMATOCRIT. 20.1 % (42.0-52.0)
[2019-01-28] MEDS: CALCIUM CARBONATE 1,250 MG/5 ML UDC PO SCH ×3 (08:00→18:04)
[2019-01-28] MEDS: NYSTATIN POWDER 15GM TOP SCH ×3 (09:00→17:51)
[2019-01-28] MEDS: CALCITRIOL 0.25MCG CAPSULE PO SCH (09:29)
[2019-01-28] MEDS ORDERED: MAGNESIUM 2 G PREMIX 50 ML IV NR (11:00)
[2019-01-28] MEDS: DIGOXIN 500MCG/2ML AMP IV SCH (17:59)
[2019-01-28] MEDS: DEXT 5%/0.2% NACL 1,000 ML IV SCH (21:47)
[2019-01-28 22:48] LABS: HEMATOCRIT 25.4 % (42.0-52.0); HEMOGLOBIN 8.4 g/dL (14.0-18.0)
[2019-01-29] VITALS (12 sets, daily range): BP systolic 99–160; BP diastolic 52–78
[2019-01-29] MEDS: METOCLOPRAMIDE HCL 10MG/2ML VIAL IV SCH ×3 (00:30→17:03)
[2019-01-29] MEDS: BLOOD SUGAR DIAGNOSTIC STRIP TEST SCH ×3 (00:30→17:04)
[2019-01-29] MEDS: NYSTATIN POWDER 15GM TOP SCH ×3 (08:27→17:04)
[2019-01-29] MEDS: CALCIUM CARBONATE 1,250 MG/5 ML UDC PO SCH ×3 (08:27→17:03)
[2019-01-29] MEDS: CALCITRIOL 0.25MCG CAPSULE PO SCH (08:27)
[2019-01-29 09:38] LABS: BASOPHILS % 1.3 % (0.0-2.0); EOSINOPHILS % 3.6 % (0.0-5.0); HEMATOCRIT. 25.7 % (42.0-52.0); HEMOGLOBIN. 8.5 g/dL (14.0-18.0); LYMPHOCYTES % 15.9 % (20.0-50.0); MEAN CORPUSCULAR HEMOGLOBIN 30.6 pg (28.0-32.0); MEAN CORPUSCULAR VOLUME 92.9 fL (80.0-94.0); MEAN PLATELET VOLUME 9.9 fl (7.4-10.4); MONOCYTES % 8.7 % (2.0-8.0); NEUTROPHILS % 70.5 % (40.0-76.0); PLATELET 159 x1000/uL (130-400); RED BLOOD CELL COUNT 2.76 mill/uL (4.7-6.1)
[2019-01-29 09:57] LABS: CHLORIDE 114 mEq/L (98-107)
[2019-01-29 10:34] LABS: PHOSPHORUS 4.4 mg/dL (2.5-4.9)
[2019-01-29] MEDS: INSULIN LISPRO 100 UNITS/ML SUBCUT SCH ×3 (12:00→17:04)
[2019-01-29] MEDS: AMIODARONE HCL 200 MG TABLET PO SCH ×2 (13:02→21:22)
[2019-01-29] MEDS: DILTIAZEM HCL 60MG TABLET PO SCH ×2 (13:02→21:23)
[2019-01-29] MEDS: IPRATROPIUM BROMIDE (0.02%) 0.5MG/2.5ML NEB HHN SCH ×2 (14:03→20:16)
[2019-01-29] MEDS: LORAZEPAM 2MG/ML CPJ IV PRN ×2 (14:03→18:10)
[2019-01-29 16:32] LABS: HEMATOCRIT 24.9 % (42.0-52.0); HEMOGLOBIN 8.4 g/dL (14.0-18.0)
[2019-01-29] MEDS: DEXT 5%/0.2% NACL 1,000 ML IV SCH (17:05)
[2019-01-30] VITALS (12 sets, daily range): BP systolic 101–134; BP diastolic 54–77
[2019-01-30] MEDS: LORAZEPAM 2MG/ML CPJ IV PRN ×4 (00:19→17:01)
[2019-01-30] MEDS: METOCLOPRAMIDE HCL 10MG/2ML VIAL IV SCH ×4 (00:19→17:01)
[2019-01-30] MEDS: IPRATROPIUM BROMIDE (0.02%) 0.5MG/2.5ML NEB HHN SCH ×4 (03:13→20:01)
[2019-01-30] MEDS: AMIODARONE HCL 200 MG TABLET PO SCH ×3 (05:49→22:25)
[2019-01-30] MEDS: DILTIAZEM HCL 60MG TABLET PO SCH (05:49)
[2019-01-30] MEDS: INSULIN LISPRO 100 UNITS/ML SUBCUT SCH ×4 (05:49→17:01)
[2019-01-30] MEDS: BLOOD SUGAR DIAGNOSTIC STRIP TEST SCH ×4 (05:50→17:01)
[2019-01-30] MEDS: MORPHINE SULFATE 2 MG/ML CPJ (NOT FOR IM USE) IV PRN (05:51)
[2019-01-30 06:20] LABS: BASOPHILS % 1.2 % (0.0-2.0); EOSINOPHILS % 3.3 % (0.0-5.0); HEMATOCRIT. 24.3 % (42.0-52.0); HEMOGLOBIN. 8.2 g/dL (14.0-18.0); LYMPHOCYTES % 14.2 % (20.0-50.0); MEAN CORPUSCULAR HEMOGLOBIN 30.9 pg (28.0-32.0); MEAN PLATELET VOLUME 9.5 fl (7.4-10.4); MONOCYTES % 11.2 % (2.0-8.0); NEUTROPHILS % 70.1 % (40.0-76.0); PLATELET 132 x1000/uL (130-400); RED BLOOD CELL COUNT 2.64 mill/uL (4.7-6.1); RED CELL DISTRIBUTION WIDTH 16.2 % (11.6-14.6)
[2019-01-30] MEDS: CALCITRIOL 0.25MCG CAPSULE PO SCH (08:02)
[2019-01-30] MEDS: NYSTATIN POWDER 15GM TOP SCH ×3 (08:02→16:52)
[2019-01-30] MEDS: CALCIUM CARBONATE 1,250 MG/5 ML UDC PO SCH ×3 (08:02→17:01)
[2019-01-30] MEDS: DIGOXIN 500MCG/2ML AMP IV SCH (17:00)
[2019-01-31] VITALS (12 sets, daily range): BP systolic 108–147; BP diastolic 57–72
[2019-01-31] MEDS: METOCLOPRAMIDE HCL 10MG/2ML VIAL IV SCH ×4 (00:26→18:35)
[2019-01-31] MEDS: BLOOD SUGAR DIAGNOSTIC STRIP TEST SCH ×4 (00:26→18:27)
[2019-01-31] MEDS: MORPHINE SULFATE 2 MG/ML CPJ (NOT FOR IM USE) IV PRN ×3 (01:04→15:08)
[2019-01-31] MEDS: LORAZEPAM 2MG/ML CPJ IV PRN ×3 (01:22→15:07)
[2019-01-31] MEDS: IPRATROPIUM BROMIDE (0.02%) 0.5MG/2.5ML NEB HHN SCH ×4 (02:35→20:14)
[2019-01-31] MEDS: AMIODARONE HCL 200 MG TABLET PO SCH ×3 (05:46→21:31)
[2019-01-31] MEDS: INSULIN LISPRO 100 UNITS/ML SUBCUT SCH ×4 (06:00→18:00)
[2019-01-31 06:36] LABS: EOSINOPHILS % 3.8 % (0.0-5.0); HEMATOCRIT. 23.7 % (42.0-52.0); LYMPHOCYTES % 15.5 % (20.0-50.0); MEAN CORPUSCULAR HEMOGLOBIN 31.2 pg (28.0-32.0); MEAN CORPUSCULAR VOLUME 92.5 fL (80.0-94.0); MEAN PLATELET VOLUME 9.8 fl (7.4-10.4); MONOCYTES % 12.7 % (2.0-8.0); PLATELET 125 x1000/uL (130-400); RED BLOOD CELL COUNT 2.57 mill/uL (4.7-6.1); RED CELL DISTRIBUTION WIDTH 16.6 % (11.6-14.6)
[2019-01-31 06:52] LABS: PHOSPHORUS 3.8 mg/dL (2.5-4.9)
[2019-01-31] MEDS: CALCIUM CARBONATE 1,250 MG/5 ML UDC PO SCH ×3 (09:29→18:35)
[2019-01-31] MEDS: NYSTATIN POWDER 15GM TOP SCH ×3 (09:30→18:35)
[2019-02-01] VITALS (12 sets, daily range): BP systolic 118–154; BP diastolic 57–98
[2019-02-01] MEDS: LORAZEPAM 2MG/ML CPJ IV PRN ×3 (00:19→12:17)
[2019-02-01] MEDS: METOCLOPRAMIDE HCL 10MG/2ML VIAL IV SCH ×4 (00:19→17:27)
[2019-02-01] MEDS: IPRATROPIUM BROMIDE (0.02%) 0.5MG/2.5ML NEB HHN SCH ×4 (01:52→20:38)
[2019-02-01] MEDS: AMIODARONE HCL 200 MG TABLET PO SCH ×3 (05:13→21:06)
[2019-02-01] MEDS: INSULIN LISPRO 100 UNITS/ML SUBCUT SCH ×4 (05:13→17:26)
[2019-02-01] MEDS: BLOOD SUGAR DIAGNOSTIC STRIP TEST SCH ×4 (05:13→17:28)
[2019-02-01 07:49] LABS: BASOPHILS % 1.3 % (0.0-2.0); EOSINOPHILS % 4.8 % (0.0-5.0); HEMATOCRIT. 26.5 % (42.0-52.0); HEMOGLOBIN. 8.9 g/dL (14.0-18.0); LYMPHOCYTES % 11.1 % (20.0-50.0); MEAN CORPUSCULAR HEMOGLOBIN 30.9 pg (28.0-32.0); MEAN CORPUSCULAR VOLUME 92.3 fL (80.0-94.0); MEAN PLATELET VOLUME 9.9 fl (7.4-10.4); MONOCYTES % 11.8 % (2.0-8.0); PLATELET 123 x1000/uL (130-400); RED BLOOD CELL COUNT 2.87 mill/uL (4.7-6.1); RED CELL DISTRIBUTION WIDTH 16.8 % (11.6-14.6)
[2019-02-01 08:21] LABS: CHLORIDE 111 mEq/L (98-107)
[2019-02-01 08:21] LABS: BG BASE EXCESS -0.4 mmol/L (-2.0-2.0); BG CARBOXYHEMOGLOBIN 0.5 % (0.5-1.5); BG DEOXYHEMOGLOBIN 1.5 % (0.0-5.0); BG FRACTION INSPIRED OXYGEN 30; BG HCO3 ACT 22.8 mmol/L (22.0-26.0); BG METHEMOGLOBIN 0.2 % (0.0-1.5); BG OXYGEN SATURATION 98.5 % (92.0-98.5); BG OXYHEMOGLOBIN 97.8 % (94.0-97.0); BG PCO2 31.4 mmHg (35.0-45.0); BG PH 7.479 (7.350-7.450); BG PO2 136.3 mmHg (75.0-100.0); BG PRESSURE SUPPORT 10; BG SAMPLE SITE RIGHT BRACHIAL; BG TIDAL VOLUME(mL) 500 mL; BG TOTAL HEMOGLOBIN 8.4 g/dL (12.0-18.0); BG VENT MODE VENT - SIMV; BG VENT RATE 6 set
[2019-02-01 08:28] LABS: PHOSPHORUS 3.8 mg/dL (2.5-4.9)
[2019-02-01] MEDS: NYSTATIN POWDER 15GM TOP SCH ×3 (09:23→17:27)
[2019-02-01] MEDS: MORPHINE SULFATE 2 MG/ML CPJ (NOT FOR IM USE) IV PRN ×2 (09:24→15:44)
[2019-02-01] MEDS: CALCIUM CARBONATE 1,250 MG/5 ML UDC PO SCH ×2 (09:25→17:28)
[2019-02-01] MEDS: DIGOXIN 500MCG/2ML AMP IV SCH (17:29)
[2019-02-02] VITALS (12 sets, daily range): BP systolic 117–148; BP diastolic 62–87
[2019-02-02] MEDS: METOCLOPRAMIDE HCL 10MG/2ML VIAL IV SCH ×4 (00:39→17:54)
[2019-02-02] MEDS: LORAZEPAM 2MG/ML CPJ IV PRN ×4 (01:45→22:32)
[2019-02-02] MEDS: IPRATROPIUM BROMIDE (0.02%) 0.5MG/2.5ML NEB HHN SCH ×4 (03:02→21:15)
[2019-02-02] MEDS: AMIODARONE HCL 200 MG TABLET PO SCH ×3 (05:33→21:01)
[2019-02-02] MEDS: MORPHINE SULFATE 2 MG/ML CPJ (NOT FOR IM USE) IV PRN ×3 (06:16→21:01)
[2019-02-02 08:13] LABS: BASOPHILS % 1.3 % (0.0-2.0); EOSINOPHILS % 5.3 % (0.0-5.0); HEMATOCRIT. 24.3 % (42.0-52.0); LYMPHOCYTES % 13.3 % (20.0-50.0); MEAN CORPUSCULAR HEMOGLOBIN 30.3 pg (28.0-32.0); MEAN CORPUSCULAR VOLUME 92.7 fL (80.0-94.0); MONOCYTES % 14.8 % (2.0-8.0); NEUTROPHILS % 65.3 % (40.0-76.0); PLATELET 124 x1000/uL (130-400); RED BLOOD CELL COUNT 2.62 mill/uL (4.7-6.1); RED CELL DISTRIBUTION WIDTH 16.2 % (11.6-14.6)
[2019-02-02] MEDS: CALCIUM CARBONATE 1,250 MG/5 ML UDC PO SCH ×2 (09:41→17:54)
[2019-02-02] MEDS: NYSTATIN POWDER 15GM TOP SCH ×3 (09:41→17:09)
[2019-02-03] VITALS (12 sets, daily range): BP systolic 93–156; BP diastolic 56–84
[2019-02-03] MEDS: METOCLOPRAMIDE HCL 10MG/2ML VIAL IV SCH ×4 (00:09→17:45)
[2019-02-03] MEDS: DILTIAZEM HCL 5MG/ML 5ML VIAL IV PRN ×3 (00:20→06:36)
[2019-02-03] MEDS: MORPHINE SULFATE 2 MG/ML CPJ (NOT FOR IM USE) IV PRN (01:36)
[2019-02-03] MEDS: IPRATROPIUM BROMIDE (0.02%) 0.5MG/2.5ML NEB HHN SCH ×4 (01:52→20:11)
[2019-02-03] MEDS: LORAZEPAM 2MG/ML CPJ IV PRN ×4 (04:20→21:48)
[2019-02-03] MEDS: AMIODARONE HCL 200 MG TABLET PO SCH ×3 (05:35→21:47)
[2019-02-03 06:08] LABS: HEMATOCRIT. 25.7 % (42.0-52.0); HEMOGLOBIN. 8.4 g/dL (14.0-18.0); MEAN CORPUSCULAR HEMOGLOBIN 30.1 pg (28.0-32.0); MEAN CORPUSCULAR VOLUME 92.1 fL (80.0-94.0); MEAN PLATELET VOLUME 9.8 fl (7.4-10.4); PLATELET 158 x1000/uL (130-400); RED BLOOD CELL COUNT 2.79 mill/uL (4.7-6.1); RED CELL DISTRIBUTION WIDTH 16.3 % (11.6-14.6)
[2019-02-03 06:46] LABS: CHLORIDE 111 mEq/L (98-107)
[2019-02-03 06:57] LABS: PHOSPHORUS 3.5 mg/dL (2.5-4.9)
[2019-02-03] MEDS: NYSTATIN POWDER 15GM TOP SCH ×3 (08:53→17:38)
[2019-02-03] MEDS: CALCIUM CARBONATE 1,250 MG/5 ML UDC PO SCH ×2 (08:53→17:46)
[2019-02-03] MEDS ORDERED: VANCOMYCIN 1500MG in DEXTROSE 5% WATER 250ML IV NR (12:00)
[2019-02-03] MEDS: CEFEPIME 2,000 MG in DEXT 5% WATER 100 ML IV SCH (12:38)
[2019-02-03] MEDS: ACETAMINOPHEN 325MG TABLET PO PRN (12:39)
[2019-02-03] MEDS: SODIUM CHLORIDE 0.45% 1,000 ML IV SCH (12:39)
[2019-02-03 15:07] LABS: PLATELET ESTIMATE NORMAL
[2019-02-03] MEDS: DIGOXIN 500MCG/2ML AMP IV SCH (17:46)
[2019-02-04] VITALS (12 sets, daily range): BP systolic 104–131; BP diastolic 63–85
[2019-02-04] MEDS: METOCLOPRAMIDE HCL 10MG/2ML VIAL IV SCH ×4 (00:24→17:21)
[2019-02-04] MEDS: AMIODARONE HCL 200 MG TABLET PO SCH ×3 (05:01→21:15)
[2019-02-04] MEDS: LORAZEPAM 2MG/ML CPJ IV PRN ×3 (05:01→20:43)
[2019-02-04 08:05] LABS: CHLORIDE 111 mEq/L (98-107)
[2019-02-04 08:15] LABS: PHOSPHORUS 3.1 mg/dL (2.5-4.9)
[2019-02-04] MEDS: SODIUM CHLORIDE 0.45% 1,000 ML IV SCH (08:15)
[2019-02-04] MEDS: NYSTATIN POWDER 15GM TOP SCH ×3 (08:16→17:22)
[2019-02-04] MEDS: CALCIUM CARBONATE 1,250 MG/5 ML UDC PO SCH ×2 (08:16→17:21)
[2019-02-04 08:18] LABS: BASOPHILS % 0.3 % (0.0-2.0); EOSINOPHILS % 0.2 % (0.0-5.0); HEMATOCRIT. 23.6 % (42.0-52.0); HEMOGLOBIN. 7.8 g/dL (14.0-18.0); LYMPHOCYTES % 7.2 % (20.0-50.0); MEAN CORPUSCULAR HEMOGLOBIN 30.4 pg (28.0-32.0); MEAN CORPUSCULAR VOLUME 92.2 fL (80.0-94.0); MEAN PLATELET VOLUME 10.6 fl (7.4-10.4); MONOCYTES % 11.6 % (2.0-8.0); NEUTROPHILS % 80.7 % (40.0-76.0); PLATELET 127 x1000/uL (130-400); RED BLOOD CELL COUNT 2.56 mill/uL (4.7-6.1); RED CELL DISTRIBUTION WIDTH 16.8 % (11.6-14.6)
[2019-02-04] MEDS: IPRATROPIUM BROMIDE (0.02%) 0.5MG/2.5ML NEB HHN SCH ×3 (08:26→20:44)
[2019-02-04] MEDS ORDERED: VANCOMYCIN 750 MG PREMIX 150 ML IV SCH (12:00)
[2019-02-04] MEDS: CEFEPIME 2,000 MG in DEXT 5% WATER 100 ML IV SCH (12:46)
[2019-02-05] VITALS (17 sets, daily range): BP systolic 96–143; BP diastolic 52–89
[2019-02-05] MEDS: METOCLOPRAMIDE HCL 10MG/2ML VIAL IV SCH ×4 (00:27→18:39)
[2019-02-05] MEDS: IPRATROPIUM BROMIDE (0.02%) 0.5MG/2.5ML NEB HHN SCH ×4 (01:10→21:11)
[2019-02-05] MEDS: LORAZEPAM 2MG/ML CPJ IV PRN ×5 (02:45→23:33)
[2019-02-05] MEDS: AMIODARONE HCL 200 MG TABLET PO SCH ×3 (05:48→22:45)
[2019-02-05] MEDS: MORPHINE SULFATE 2 MG/ML CPJ (NOT FOR IM USE) IV PRN ×4 (05:53→18:41)
[2019-02-05] MEDS: SODIUM CHLORIDE 0.45% 1,000 ML IV SCH ×2 (06:03→22:45)
[2019-02-05] MEDS: NYSTATIN POWDER 15GM TOP SCH ×3 (09:17→17:50)
[2019-02-05] MEDS: CALCIUM CARBONATE 1,250 MG/5 ML UDC PO SCH ×2 (09:18→18:39)
[2019-02-05 09:36] LABS: BASOPHILS % 0.3 % (0.0-2.0); EOSINOPHILS % 1.5 % (0.0-5.0); LYMPHOCYTES % 7.9 % (20.0-50.0); MEAN CORPUSCULAR HEMOGLOBIN 29.8 pg (28.0-32.0); MEAN CORPUSCULAR VOLUME 93.5 fL (80.0-94.0); MEAN PLATELET VOLUME 10.5 fl (7.4-10.4); MONOCYTES % 8.3 % (2.0-8.0); PLATELET 96 x1000/uL (130-400); RED BLOOD CELL COUNT 2.35 mill/uL (4.7-6.1); RED CELL DISTRIBUTION WIDTH 16.9 % (11.6-14.6)
[2019-02-05 09:41] LABS: INR 1.1; PARTIAL THROMBOPLASTIN TIME 31.7 sec (23.4-31.0); PROTHROMBIN TIME 11.1 sec (9.6-11.0)
[2019-02-05 09:52] LABS: PHOSPHORUS 3.3 mg/dL (2.5-4.9)
[2019-02-05] MEDS ORDERED: SODIUM BICARBONATE 4% (2.4MEQ) 5ML VIAL IV ONE (10:07)
[2019-02-05] MEDS ORDERED: VANCOMYCIN 750 MG PREMIX 150 ML IV SCH (13:00)
[2019-02-05] MEDS: CEFEPIME 2,000 MG in DEXT 5% WATER 100 ML IV SCH (14:17)
[2019-02-05] MEDS: DIGOXIN 500MCG/2ML AMP IV SCH (18:39)
[2019-02-06] VITALS (12 sets, daily range): BP systolic 112–152; BP diastolic 47–103
[2019-02-06 01:47] LABS: BASOPHILS % 0.5 % (0.0-2.0); EOSINOPHILS % 2.7 % (0.0-5.0); HEMATOCRIT. 26.5 % (42.0-52.0); HEMOGLOBIN. 8.7 g/dL (14.0-18.0); MEAN CORPUSCULAR HEMOGLOBIN 30.1 pg (28.0-32.0); MEAN CORPUSCULAR VOLUME 91.9 fL (80.0-94.0); MEAN PLATELET VOLUME 9.7 fl (7.4-10.4); MONOCYTES % 7.8 % (2.0-8.0); PLATELET 100 x1000/uL (130-400); RED BLOOD CELL COUNT 2.89 mill/uL (4.7-6.1); RED CELL DISTRIBUTION WIDTH 16.6 % (11.6-14.6)
[2019-02-06] MEDS: METOCLOPRAMIDE HCL 10MG/2ML VIAL IV SCH ×4 (01:48→18:25)
[2019-02-06 02:05] LABS: INR 1.1; PROTHROMBIN TIME 10.9 sec (9.6-11.0)
[2019-02-06] MEDS: IPRATROPIUM BROMIDE (0.02%) 0.5MG/2.5ML NEB HHN SCH ×4 (02:25→20:37)
[2019-02-06] MEDS: MORPHINE SULFATE 2 MG/ML CPJ (NOT FOR IM USE) IV PRN ×2 (02:34→08:23)
[2019-02-06] MEDS: AMIODARONE HCL 200 MG TABLET PO SCH ×3 (06:52→21:45)
[2019-02-06] MEDS: LORAZEPAM 2MG/ML CPJ IV PRN ×3 (08:22→18:25)
[2019-02-06] MEDS: CALCIUM CARBONATE 1,250 MG/5 ML UDC PO SCH ×2 (08:22→18:25)
[2019-02-06] MEDS: NYSTATIN POWDER 15GM TOP SCH ×3 (08:22→17:01)
[2019-02-06] MEDS ORDERED: SODIUM BICARBONATE 4% (2.4MEQ) 5ML VIAL IV ONE (08:25)
[2019-02-06 08:33] LABS: BASOPHILS % 0.4 % (0.0-2.0); EOSINOPHILS % 2.7 % (0.0-5.0); HEMATOCRIT. 25.8 % (42.0-52.0); HEMOGLOBIN. 8.4 g/dL (14.0-18.0); LYMPHOCYTES % 8.3 % (20.0-50.0); MEAN CORPUSCULAR HEMOGLOBIN 29.9 pg (28.0-32.0); MEAN CORPUSCULAR VOLUME 91.8 fL (80.0-94.0); MEAN PLATELET VOLUME 10.9 fl (7.4-10.4); MONOCYTES % 7.7 % (2.0-8.0); NEUTROPHILS % 80.9 % (40.0-76.0); PLATELET 113 x1000/uL (130-400); RED BLOOD CELL COUNT 2.81 mill/uL (4.7-6.1); RED CELL DISTRIBUTION WIDTH 16.5 % (11.6-14.6)
[2019-02-06 08:47] LABS: PHOSPHORUS 3.4 mg/dL (2.5-4.9)
[2019-02-06] MEDS: CEFEPIME 2,000 MG in DEXT 5% WATER 100 ML IV SCH (13:09)
[2019-02-06] MEDS: METRONIDAZOLE 500 MG PREMIX 100 ML IV SCH ×2 (14:59→21:45)
[2019-02-06] MEDS: SODIUM CHLORIDE 0.45% 1,000 ML IV SCH (19:00)
[2019-02-06] MEDS: VANCOMYCIN 1500MG in DEXTROSE 5% WATER 250ML IV SCH (21:45)
[2019-02-07] VITALS (17 sets, daily range): BP systolic 106–157; BP diastolic 56–102
[2019-02-07] MEDS: METOCLOPRAMIDE HCL 10MG/2ML VIAL IV SCH ×4 (01:28→17:42)
[2019-02-07] MEDS: IPRATROPIUM BROMIDE (0.02%) 0.5MG/2.5ML NEB HHN SCH ×4 (01:57→21:05)
[2019-02-07] MEDS: AMIODARONE HCL 200 MG TABLET PO SCH ×3 (05:12→21:25)
[2019-02-07] MEDS: METRONIDAZOLE 500 MG PREMIX 100 ML IV SCH ×3 (05:12→21:25)
[2019-02-07 05:34] LABS: CHLORIDE 111 mEq/L (98-107)
[2019-02-07 05:40] LABS: PHOSPHORUS 3.1 mg/dL (2.5-4.9)
[2019-02-07 05:48] LABS: BASOPHILS % 0.5 % (0.0-2.0); EOSINOPHILS % 2.1 % (0.0-5.0); HEMATOCRIT. 27.1 % (42.0-52.0); HEMOGLOBIN. 8.9 g/dL (14.0-18.0); LYMPHOCYTES % 8.1 % (20.0-50.0); MEAN CORPUSCULAR HEMOGLOBIN 30.4 pg (28.0-32.0); MEAN PLATELET VOLUME 11.1 fl (7.4-10.4); MONOCYTES % 7.7 % (2.0-8.0); NEUTROPHILS % 81.6 % (40.0-76.0); PLATELET 126 x1000/uL (130-400); RED BLOOD CELL COUNT 2.94 mill/uL (4.7-6.1); RED CELL DISTRIBUTION WIDTH 16.5 % (11.6-14.6)
[2019-02-07] MEDS: LORAZEPAM 2MG/ML CPJ IV PRN ×3 (08:22→21:24)
[2019-02-07] MEDS: SODIUM CHLORIDE 0.45% 1,000 ML IV SCH (08:22)
[2019-02-07] MEDS: CALCIUM CARBONATE 1,250 MG/5 ML UDC PO SCH ×2 (08:41→17:43)
[2019-02-07] MEDS: NYSTATIN POWDER 15GM TOP SCH ×2 (08:41→12:31)
[2019-02-07] MEDS: CEFEPIME 2,000 MG in DEXT 5% WATER 100 ML IV SCH (11:53)
[2019-02-07] MEDS: DIGOXIN 500MCG/2ML AMP IV SCH (17:41)
[2019-02-08] VITALS (12 sets, daily range): BP systolic 110–137; BP diastolic 53–86
[2019-02-08] MEDS: METOCLOPRAMIDE HCL 10MG/2ML VIAL IV SCH ×5 (01:09→17:01)
[2019-02-08] MEDS: IPRATROPIUM BROMIDE (0.02%) 0.5MG/2.5ML NEB HHN SCH ×4 (02:10→20:42)
[2019-02-08] MEDS: LORAZEPAM 2MG/ML CPJ IV PRN ×3 (03:43→16:46)
[2019-02-08] MEDS: METRONIDAZOLE 500 MG PREMIX 100 ML IV SCH ×3 (05:53→21:58)
[2019-02-08] MEDS: AMIODARONE HCL 200 MG TABLET PO SCH ×3 (05:53→21:57)
[2019-02-08 08:04] LABS: BASOPHILS % 0.7 % (0.0-2.0); EOSINOPHILS % 2.3 % (0.0-5.0); HEMATOCRIT. 24.2 % (42.0-52.0); HEMOGLOBIN. 8.1 g/dL (14.0-18.0); LYMPHOCYTES % 8.3 % (20.0-50.0); MEAN CORPUSCULAR HEMOGLOBIN 30.6 pg (28.0-32.0); MEAN CORPUSCULAR VOLUME 91.8 fL (80.0-94.0); MEAN PLATELET VOLUME 10.8 fl (7.4-10.4); MONOCYTES % 7.9 % (2.0-8.0); NEUTROPHILS % 80.8 % (40.0-76.0); PLATELET 111 x1000/uL (130-400); RED BLOOD CELL COUNT 2.64 mill/uL (4.7-6.1); RED CELL DISTRIBUTION WIDTH 15.9 % (11.6-14.6)
[2019-02-08 08:43] LABS: CHLORIDE 111 mEq/L (98-107)
[2019-02-08 08:49] LABS: PHOSPHORUS 2.9 mg/dL (2.5-4.9)
[2019-02-08] MEDS: VANCOMYCIN 1500MG in DEXTROSE 5% WATER 250ML IV SCH (09:24)
[2019-02-08] MEDS: ACETAMINOPHEN 325MG TABLET PO PRN ×2 (09:25→16:45)
[2019-02-08] MEDS: NYSTATIN POWDER 15GM TOP SCH ×3 (09:26→16:45)
[2019-02-08] MEDS: CALCIUM CARBONATE 1,250 MG/5 ML UDC PO SCH ×2 (10:02→17:02)
[2019-02-08] MEDS: SODIUM CHLORIDE 0.45% 1,000 ML IV SCH (10:02)
[2019-02-08] MEDS: CEFEPIME 2,000 MG in DEXT 5% WATER 100 ML IV SCH (13:15)
[2019-02-09] VITALS (12 sets, daily range): BP systolic 120–136; BP diastolic 56–90
[2019-02-09] MEDS: IPRATROPIUM BROMIDE (0.02%) 0.5MG/2.5ML NEB HHN SCH ×4 (01:49→20:59)
[2019-02-09] MEDS: LORAZEPAM 2MG/ML CPJ IV PRN ×3 (03:59→17:32)
[2019-02-09] MEDS: METRONIDAZOLE 500 MG PREMIX 100 ML IV SCH ×3 (05:47→21:02)
[2019-02-09] MEDS: AMIODARONE HCL 200 MG TABLET PO SCH ×3 (05:48→22:00)
[2019-02-09] MEDS: SODIUM CHLORIDE 0.45% 1,000 ML IV SCH (07:00)
[2019-02-09] MEDS: CALCIUM CARBONATE 1,250 MG/5 ML UDC PO SCH ×2 (08:43→17:31)
[2019-02-09] MEDS: ACETAMINOPHEN 325MG TABLET PO PRN ×2 (08:44→17:32)
[2019-02-09] MEDS: NYSTATIN POWDER 15GM TOP SCH ×3 (08:45→17:33)
[2019-02-09] MEDS: LACTOBACILLUS GG CAPSULE PO SCH (09:23)
[2019-02-09] MEDS: DILTIAZEM HCL 5MG/ML 5ML VIAL IV PRN (10:24)
[2019-02-09] MEDS: CEFEPIME 2,000 MG in DEXT 5% WATER 100 ML IV SCH (12:45)
[2019-02-09 17:51] LABS: HEMATOCRIT 24.8 % (42.0-52.0); HEMOGLOBIN 8.1 g/dL (14.0-18.0); MEAN CORPUSCULAR HEMOGLOBIN 30.5 pg (28.0-32.0); MEAN CORPUSCULAR VOLUME 92.8 fL (80.0-94.0); PLATELET 129 x1000/uL (130-400); RED BLOOD CELL COUNT 2.67 mill/uL (4.7-6.1); RED CELL DISTRIBUTION WIDTH 16.6 % (11.6-14.6)
[2019-02-09 17:58] LABS: CHLORIDE 112 mEq/L (98-107)
[2019-02-09 18:03] LABS: PHOSPHORUS 2.6 mg/dL (2.5-4.9)
[2019-02-09] MEDS: DIGOXIN 500MCG/2ML AMP IV SCH (18:09)
[2019-02-09] MEDS: VANCOMYCIN 1500MG in DEXTROSE 5% WATER 250ML IV SCH (21:02)
[2019-02-10] VITALS (12 sets, daily range): BP systolic 77–138; BP diastolic 50–85
[2019-02-10] MEDS: IPRATROPIUM BROMIDE (0.02%) 0.5MG/2.5ML NEB HHN SCH ×4 (01:44→21:40)
[2019-02-10] MEDS: SODIUM CHLORIDE 0.45% 1,000 ML IV SCH (03:00)
[2019-02-10] MEDS: AMIODARONE HCL 200 MG TABLET PO SCH ×3 (06:15→21:25)
[2019-02-10] MEDS: METRONIDAZOLE 500 MG PREMIX 100 ML IV SCH ×3 (06:15→21:18)
[2019-02-10 07:42] LABS: BASOPHILS % 0.4 % (0.0-2.0); EOSINOPHILS % 2.8 % (0.0-5.0); HEMATOCRIT. 25.3 % (42.0-52.0); HEMOGLOBIN. 8.4 g/dL (14.0-18.0); LYMPHOCYTES % 7.8 % (20.0-50.0); MEAN CORPUSCULAR HEMOGLOBIN 30.4 pg (28.0-32.0); MEAN CORPUSCULAR VOLUME 91.8 fL (80.0-94.0); MEAN PLATELET VOLUME 10.4 fl (7.4-10.4); MONOCYTES % 7.1 % (2.0-8.0); NEUTROPHILS % 81.9 % (40.0-76.0); PLATELET 125 x1000/uL (130-400); RED BLOOD CELL COUNT 2.76 mill/uL (4.7-6.1); RED CELL DISTRIBUTION WIDTH 16.6 % (11.6-14.6)
[2019-02-10 07:55] LABS: CHLORIDE 111 mEq/L (98-107)
[2019-02-10] MEDS: CALCIUM CARBONATE 1,250 MG/5 ML UDC PO SCH ×2 (08:16→18:11)
[2019-02-10] MEDS: LACTOBACILLUS GG CAPSULE PO SCH (09:44)
[2019-02-10] MEDS: NYSTATIN POWDER 15GM TOP SCH ×3 (09:44→17:40)
[2019-02-10] MEDS: CEFEPIME 2,000 MG in DEXT 5% WATER 100 ML IV SCH (13:45)
[2019-02-10] MEDS: LORAZEPAM 2MG/ML CPJ IV PRN (13:45)
[2019-02-11] VITALS (12 sets, daily range): BP systolic 110–135; BP diastolic 58–86
[2019-02-11] MEDS: IPRATROPIUM BROMIDE (0.02%) 0.5MG/2.5ML NEB HHN SCH ×4 (02:55→20:03)
[2019-02-11] MEDS: SODIUM CHLORIDE 0.45% 1,000 ML IV SCH (04:03)
[2019-02-11] MEDS: METRONIDAZOLE 500 MG PREMIX 100 ML IV SCH ×3 (06:51→22:07)
[2019-02-11] MEDS: AMIODARONE HCL 200 MG TABLET PO SCH ×3 (06:55→22:07)
[2019-02-11 07:18] LABS: HEMATOCRIT. 27.3 % (42.0-52.0); HEMOGLOBIN. 8.8 g/dL (14.0-18.0); MEAN CORPUSCULAR HEMOGLOBIN 29.9 pg (28.0-32.0); MEAN CORPUSCULAR VOLUME 92.5 fL (80.0-94.0); MEAN PLATELET VOLUME 10.7 fl (7.4-10.4); PLATELET 153 x1000/uL (130-400); RED BLOOD CELL COUNT 2.95 mill/uL (4.7-6.1); RED CELL DISTRIBUTION WIDTH 16.7 % (11.6-14.6)
[2019-02-11 07:37] LABS: CHLORIDE 111 mEq/L (98-107)
[2019-02-11] MEDS: CALCIUM CARBONATE 1,250 MG/5 ML UDC PO SCH ×2 (08:00→18:32)
[2019-02-11] MEDS: LACTOBACILLUS GG CAPSULE PO SCH (09:00)
[2019-02-11] MEDS: NYSTATIN POWDER 15GM TOP SCH ×3 (09:00→17:00)
[2019-02-11] MEDS: VANCOMYCIN 1 G PREMIX 200 ML IV SCH (14:49)
[2019-02-11] MEDS: CEFEPIME 2,000 MG in DEXT 5% WATER 100 ML IV SCH (14:50)
[2019-02-11 15:27] LABS: BG BASE EXCESS 2.2 mmol/L (-2.0-2.0); BG CARBOXYHEMOGLOBIN 0.3 % (0.5-1.5); BG DEOXYHEMOGLOBIN 1.9 % (0.0-5.0); BG FRACTION INSPIRED OXYGEN 35; BG HCO3 ACT 26.6 mmol/L (22.0-26.0); BG METHEMOGLOBIN 0.1 % (0.0-1.5); BG OXYGEN SATURATION 98.1 % (92.0-98.5); BG OXYHEMOGLOBIN 97.7 % (94.0-97.0); BG PCO2 40.2 mmHg (35.0-45.0); BG PH 7.438 (7.350-7.450); BG PO2 117.5 mmHg (75.0-100.0); BG PRESSURE SUPPORT 8; BG SAMPLE SITE LEFT RADIAL; BG TOTAL HEMOGLOBIN 9.1 g/dL (12.0-18.0); BG VENT MODE VENT - CPAP
[2019-02-11] MEDS: DIGOXIN 500MCG/2ML AMP IV SCH (18:32)
[2019-02-12] VITALS (12 sets, daily range): BP systolic 112–135; BP diastolic 71–89
[2019-02-12] MEDS: IPRATROPIUM BROMIDE (0.02%) 0.5MG/2.5ML NEB HHN SCH ×4 (02:31→20:35)
[2019-02-12] MEDS: AMIODARONE HCL 200 MG TABLET PO SCH ×3 (06:05→21:03)
[2019-02-12] MEDS: METRONIDAZOLE 500 MG PREMIX 100 ML IV SCH ×3 (06:05→21:03)
[2019-02-12 07:12] LABS: BASOPHILS % 0.2 % (0.0-2.0); EOSINOPHILS % 0.5 % (0.0-5.0); HEMATOCRIT. 25.3 % (42.0-52.0); HEMOGLOBIN. 8.2 g/dL (14.0-18.0); LYMPHOCYTES % 7.1 % (20.0-50.0); MEAN CORPUSCULAR HEMOGLOBIN 30.1 pg (28.0-32.0); MEAN CORPUSCULAR VOLUME 92.8 fL (80.0-94.0); MEAN PLATELET VOLUME 10.4 fl (7.4-10.4); MONOCYTES % 5.5 % (2.0-8.0); NEUTROPHILS % 86.7 % (40.0-76.0); PLATELET 134 x1000/uL (130-400); RED BLOOD CELL COUNT 2.73 mill/uL (4.7-6.1); RED CELL DISTRIBUTION WIDTH 17.6 % (11.6-14.6)
[2019-02-12 07:28] LABS: CHLORIDE 113 mEq/L (98-107)
[2019-02-12 07:58] LABS: PLATELET ESTIMATE NORMAL
[2019-02-12] MEDS: CALCIUM CARBONATE 1,250 MG/5 ML UDC PO SCH ×2 (09:16→17:38)
[2019-02-12] MEDS: LACTOBACILLUS GG CAPSULE PO SCH (09:16)
[2019-02-12] MEDS: SODIUM CHLORIDE 0.45% 1,000 ML IV SCH ×2 (09:17→14:36)
[2019-02-12] MEDS: NYSTATIN POWDER 15GM TOP SCH ×3 (09:21→17:38)
[2019-02-12] MEDS: VANCOMYCIN 1 G PREMIX 200 ML IV SCH (14:16)
[2019-02-12] MEDS: CEFEPIME 2,000 MG in DEXT 5% WATER 100 ML IV SCH (14:16)
[2019-02-12 18:13] LABS: BG BASE EXCESS 3.1 mmol/L (-2.0-2.0); BG CARBOXYHEMOGLOBIN 0.3 % (0.5-1.5); BG DEOXYHEMOGLOBIN 1.6 % (0.0-5.0); BG METHEMOGLOBIN 0.3 % (0.0-1.5); BG OXYGEN SATURATION 98.4 % (92.0-98.5); BG OXYHEMOGLOBIN 97.8 % (94.0-97.0); BG PCO2 38.3 mmHg (35.0-45.0); BG PH 7.466 (7.350-7.450); BG PO2 130.9 mmHg (75.0-100.0); BG SAMPLE SITE RIGHT RADIAL; BG TOTAL HEMOGLOBIN 9.3 g/dL (12.0-18.0); BG VENT MODE T-TUBE
[2019-02-13] VITALS (12 sets, daily range): BP systolic 116–150; BP diastolic 70–94
[2019-02-13] MEDS: IPRATROPIUM BROMIDE (0.02%) 0.5MG/2.5ML NEB HHN SCH ×4 (02:56→20:46)
[2019-02-13] MEDS: AMIODARONE HCL 200 MG TABLET PO SCH ×3 (05:54→20:53)
[2019-02-13] MEDS: METRONIDAZOLE 500 MG PREMIX 100 ML IV SCH ×3 (05:55→22:57)
[2019-02-13 06:34] LABS: CHLORIDE 110 mEq/L (98-107)
[2019-02-13 07:00] LABS: HEMATOCRIT. 28.8 % (42.0-52.0); HEMOGLOBIN. 9.3 g/dL (14.0-18.0); MEAN CORPUSCULAR HEMOGLOBIN 30.1 pg (28.0-32.0); MEAN CORPUSCULAR VOLUME 92.8 fL (80.0-94.0); MEAN PLATELET VOLUME 11.1 fl (7.4-10.4); PLATELET 154 x1000/uL (130-400); RED CELL DISTRIBUTION WIDTH 17.4 % (11.6-14.6)
[2019-02-13] MEDS: NYSTATIN POWDER 15GM TOP SCH ×3 (09:10→17:12)
[2019-02-13] MEDS: LACTOBACILLUS GG CAPSULE PO SCH (09:10)
[2019-02-13] MEDS: CALCIUM CARBONATE 1,250 MG/5 ML UDC PO SCH ×2 (09:10→17:22)
[2019-02-13] MEDS: SODIUM CHLORIDE 0.45% 1,000 ML IV SCH (12:04)
[2019-02-13] MEDS: VANCOMYCIN 1 G PREMIX 200 ML IV SCH (12:07)
[2019-02-13] MEDS: CEFEPIME 2,000 MG in DEXT 5% WATER 100 ML IV SCH (13:44)
[2019-02-13 14:13] LABS: PLATELET ESTIMATE NORMAL
[2019-02-13] MEDS: DIGOXIN 500MCG/2ML AMP IV SCH (17:12)
[2019-02-14] VITALS (11 sets, daily range): BP systolic 118–149; BP diastolic 68–98
[2019-02-14] MEDS: ACETYLCYSTEINE 100MG/ML 10% VIAL 4ML INH SCH ×3 (02:08→14:39)
[2019-02-14] MEDS: IPRATROPIUM BROMIDE (0.02%) 0.5MG/2.5ML NEB HHN SCH ×4 (02:09→20:26)
[2019-02-14 06:36] LABS: CHLORIDE 111 mEq/L (98-107)
[2019-02-14] MEDS: SODIUM CHLORIDE 0.45% 1,000 ML IV SCH (06:36)
[2019-02-14] MEDS: AMIODARONE HCL 200 MG TABLET PO SCH ×3 (06:36→21:00)
[2019-02-14] MEDS: NYSTATIN POWDER 15GM TOP SCH ×3 (09:30→18:34)
[2019-02-14] MEDS: CALCIUM CARBONATE 1,250 MG/5 ML UDC PO SCH ×2 (09:30→18:00)
[2019-02-14] MEDS: LACTOBACILLUS GG CAPSULE PO SCH (09:30)
[2019-02-14 09:48] LABS: BG BASE EXCESS 1.6 mmol/L (-2.0-2.0); BG CARBOXYHEMOGLOBIN 0.7 % (0.5-1.5); BG DEOXYHEMOGLOBIN 1.8 % (0.0-5.0); BG FRACTION INSPIRED OXYGEN 35; BG HCO3 ACT 25.5 mmol/L (22.0-26.0); BG METHEMOGLOBIN 0.2 % (0.0-1.5); BG OXYGEN SATURATION 98.2 % (92.0-98.5); BG OXYHEMOGLOBIN 97.3 % (94.0-97.0); BG PCO2 37.6 mmHg (35.0-45.0); BG PH 7.449 (7.350-7.450); BG PO2 109.4 mmHg (75.0-100.0); BG SAMPLE SITE LEFT RADIAL; BG TOTAL HEMOGLOBIN 11.1 g/dL (12.0-18.0); BG VENT MODE MASK - AEROSOL
[2019-02-14] MEDS: VANCOMYCIN 1 G PREMIX 200 ML IV SCH (12:54)
[2019-02-14] MEDS: CEFEPIME 2,000 MG in DEXT 5% WATER 100 ML IV SCH (12:55)
[2019-02-15] VITALS (14 sets, daily range): BP systolic 100–146; BP diastolic 58–91
[2019-02-15] MEDS: METRONIDAZOLE 500MG TABLET PO SCH ×4 (00:23→21:43)
[2019-02-15] MEDS: IPRATROPIUM BROMIDE (0.02%) 0.5MG/2.5ML NEB HHN SCH ×4 (02:08→20:50)
[2019-02-15] MEDS: ACETYLCYSTEINE 100MG/ML 10% VIAL 4ML INH SCH ×3 (02:08→14:19)
[2019-02-15] MEDS: SODIUM CHLORIDE 0.45% 1,000 ML IV SCH (03:04)
[2019-02-15] MEDS: AMIODARONE HCL 200 MG TABLET PO SCH ×3 (05:40→22:00)
[2019-02-15] MEDS: LORAZEPAM 2MG/ML CPJ IV PRN ×3 (06:40→21:36)
[2019-02-15 07:29] LABS: BASOPHILS % 0.2 % (0.0-2.0); EOSINOPHILS % 2.9 % (0.0-5.0); HEMATOCRIT. 24.8 % (42.0-52.0); HEMOGLOBIN. 7.9 g/dL (14.0-18.0); LYMPHOCYTES % 10.5 % (20.0-50.0); MEAN CORPUSCULAR HEMOGLOBIN 30.1 pg (28.0-32.0); MEAN PLATELET VOLUME 10.8 fl (7.4-10.4); MONOCYTES % 5.5 % (2.0-8.0); NEUTROPHILS % 80.9 % (40.0-76.0); PLATELET 148 x1000/uL (130-400); RED BLOOD CELL COUNT 2.63 mill/uL (4.7-6.1)
[2019-02-15 07:40] LABS: CHLORIDE 109 mEq/L (98-107)
[2019-02-15] MEDS: NYSTATIN POWDER 15GM TOP SCH ×2 (09:07→14:30)
[2019-02-15] MEDS: LACTOBACILLUS GG CAPSULE PO SCH (09:07)
[2019-02-15] MEDS: CALCIUM CARBONATE 1,250 MG/5 ML UDC PO SCH ×2 (09:07→18:31)
[2019-02-15] MEDS: VANCOMYCIN 1 G PREMIX 200 ML IV SCH (14:29)
[2019-02-15] MEDS: CEFEPIME 2,000 MG in DEXT 5% WATER 100 ML IV SCH (14:29)
[2019-02-15] MEDS: DIGOXIN 500MCG/2ML AMP IV SCH (18:31)
[2019-02-16] VITALS (8 sets, daily range): BP systolic 116–146; BP diastolic 59–102
[2019-02-16] MEDS: ACETYLCYSTEINE 100MG/ML 10% VIAL 4ML INH SCH ×3 (02:08→12:50)
[2019-02-16] MEDS: IPRATROPIUM BROMIDE (0.02%) 0.5MG/2.5ML NEB HHN SCH ×3 (02:09→12:00)
[2019-02-16] MEDS: LORAZEPAM 2MG/ML CPJ IV PRN ×2 (03:31→08:52)
[2019-02-16] MEDS: METRONIDAZOLE 500MG TABLET PO SCH (06:25)
[2019-02-16] MEDS: AMIODARONE HCL 200 MG TABLET PO SCH (06:25)
[2019-02-16] MEDS: CALCIUM CARBONATE 1,250 MG/5 ML UDC PO SCH (08:52)
[2019-02-16] MEDS: LACTOBACILLUS GG CAPSULE PO SCH (08:52)
[2019-02-16 09:19] LABS: BASOPHILS % 0.3 % (0.0-2.0); HEMOGLOBIN. 8.9 g/dL (14.0-18.0); LYMPHOCYTES % 9.2 % (20.0-50.0); MEAN CORPUSCULAR VOLUME 93.9 fL (80.0-94.0); MEAN PLATELET VOLUME 10.7 fl (7.4-10.4); MONOCYTES % 5.2 % (2.0-8.0); NEUTROPHILS % 84.3 % (40.0-76.0); PLATELET 118 x1000/uL (130-400); RED BLOOD CELL COUNT 2.87 mill/uL (4.7-6.1); RED CELL DISTRIBUTION WIDTH 18.8 % (11.6-14.6)
[2019-02-16 09:25] LABS: CHLORIDE 111 mEq/L (98-107)
== END 2019-02-16 12:50 | disposition short-term general hospital (02) | DRG 4 ==
LOC: ER 18:41 → CVICU 21:18 → EDBEDREQTM 21:20 → EDBEDREQ 21:20 → CANRESERV 22:05 → ENRESERV 22:05 → EDBEDREQTM 23:24 → EDBEDREQSVC 23:24 → ENRESERV 12-27 01:24 → 5EST 01-18 17:08
PROVIDERS: ADMIT Internal Medicine; ATTEND Internal Medicine
PROC: 5A1955Z Respiratory Ventilation, Greater than 96 Consecutive Hours (ICD-10-PCS; principal; 2018-12-27)
PROC: 5A09457 Assistance with Respiratory Ventilation, 24-96 Consecutive Hours, Continuous Positive Airway Pressure (ICD-10-PCS; 2018-12-27)
PROC: 0BH17EZ Insertion of Endotracheal Airway into Trachea, Via Natural or Artificial Opening (ICD-10-PCS; 2018-12-28)
PROC: 02HV33Z Insertion of Infusion Device into Superior Vena Cava, Percutaneous Approach (ICD-10-PCS; 2018-12-28)
PROC: B548ZZA Ultrasonography of Superior Vena Cava, Guidance (ICD-10-PCS; 2018-12-28)
PROC: 02PYX3Z Removal of Infusion Device from Great Vessel, External Approach (ICD-10-PCS; 2018-12-28)
PROC: 02HV33Z Insertion of Infusion Device into Superior Vena Cava, Percutaneous Approach (ICD-10-PCS; 2018-12-28)
PROC: B548ZZA Ultrasonography of Superior Vena Cava, Guidance (ICD-10-PCS; 2018-12-28)
PROC: 5A1D70Z Performance of Urinary Filtration, Intermittent, Less than 6 Hours Per Day (ICD-10-PCS; 2018-12-28)
PROC: 5A1D70Z Performance of Urinary Filtration, Intermittent, Less than 6 Hours Per Day (ICD-10-PCS; 2018-12-29)
PROC: 5A1D70Z Performance of Urinary Filtration, Intermittent, Less than 6 Hours Per Day (ICD-10-PCS; 2018-12-30)
PROC: 02HV33Z Insertion of Infusion Device into Superior Vena Cava, Percutaneous Approach (ICD-10-PCS; 2018-12-31)
PROC: B548ZZA Ultrasonography of Superior Vena Cava, Guidance (ICD-10-PCS; 2018-12-31)
PROC: 5A1D70Z Performance of Urinary Filtration, Intermittent, Less than 6 Hours Per Day (ICD-10-PCS; 2018-12-31)
PROC: 4A00X4Z Measurement of Central Nervous Electrical Activity, External Approach (ICD-10-PCS; 2019-01-02)
PROC: 5A1D70Z Performance of Urinary Filtration, Intermittent, Less than 6 Hours Per Day (ICD-10-PCS; 2019-01-02)
PROC: 5A1D70Z Performance of Urinary Filtration, Intermittent, Less than 6 Hours Per Day (ICD-10-PCS; 2019-01-04)
PROC: 5A1D70Z Performance of Urinary Filtration, Intermittent, Less than 6 Hours Per Day (ICD-10-PCS; 2019-01-06)
PROC: 30233N1 Transfusion of Nonautologous Red Blood Cells into Peripheral Vein, Percutaneous Approach (ICD-10-PCS; 2019-01-08)
PROC: 5A1D70Z Performance of Urinary Filtration, Intermittent, Less than 6 Hours Per Day (ICD-10-PCS; 2019-01-08)
PROC: 0DBK8ZX Excision of Ascending Colon, Via Natural or Artificial Opening Endoscopic, Diagnostic (ICD-10-PCS; 2019-01-09)
PROC: 5A1D70Z Performance of Urinary Filtration, Intermittent, Less than 6 Hours Per Day (ICD-10-PCS; 2019-01-10)
PROC: 5A1D70Z Performance of Urinary Filtration, Intermittent, Less than 6 Hours Per Day (ICD-10-PCS; 2019-01-12)
PROC: 5A1D70Z Performance of Urinary Filtration, Intermittent, Less than 6 Hours Per Day (ICD-10-PCS; 2019-01-15)
PROC: 0DH63UZ Insertion of Feeding Device into Stomach, Percutaneous Approach (ICD-10-PCS; 2019-01-16)
PROC: 0B110F4 Bypass Trachea to Cutaneous with Tracheostomy Device, Open Approach (ICD-10-PCS; 2019-01-17)
PROC: 0GBJ0ZZ Excision of Thyroid Gland Isthmus, Open Approach (ICD-10-PCS; 2019-01-17)
PROC: 30233K1 Transfusion of Nonautologous Frozen Plasma into Peripheral Vein, Percutaneous Approach (ICD-10-PCS; 2019-01-17)
PROC: 5A1D70Z Performance of Urinary Filtration, Intermittent, Less than 6 Hours Per Day (ICD-10-PCS; 2019-01-17)
PROC: 30233R1 Transfusion of Nonautologous Platelets into Peripheral Vein, Percutaneous Approach (ICD-10-PCS; 2019-01-18)
PROC: 5A1D70Z Performance of Urinary Filtration, Intermittent, Less than 6 Hours Per Day (ICD-10-PCS; 2019-01-19)
PROC: 02HV33Z Insertion of Infusion Device into Superior Vena Cava, Percutaneous Approach (ICD-10-PCS; 2019-01-22)
PROC: B548ZZA Ultrasonography of Superior Vena Cava, Guidance (ICD-10-PCS; 2019-01-22)
PROC: 5A1D70Z Performance of Urinary Filtration, Intermittent, Less than 6 Hours Per Day (ICD-10-PCS; 2019-01-22)
PROC: 0JBH0ZZ Excision of Left Lower Arm Subcutaneous Tissue and Fascia, Open Approach (ICD-10-PCS; 2019-01-24)
PROC: 5A1D70Z Performance of Urinary Filtration, Intermittent, Less than 6 Hours Per Day (ICD-10-PCS; 2019-01-24)
PROC: 5A1D70Z Performance of Urinary Filtration, Intermittent, Less than 6 Hours Per Day (ICD-10-PCS; 2019-01-26)
PROC: 5A1D70Z Performance of Urinary Filtration, Intermittent, Less than 6 Hours Per Day (ICD-10-PCS; 2019-01-29)
PROC: 0W993ZZ Drainage of Right Pleural Cavity, Percutaneous Approach (ICD-10-PCS; 2019-02-05)
PROC: 0W9B3ZZ Drainage of Left Pleural Cavity, Percutaneous Approach (ICD-10-PCS; 2019-02-06)
DX: A40.3 Sepsis due to Streptococcus pneumoniae (principal); K72.00 Acute and subacute hepatic failure without coma; N17.0 Acute kidney failure with tubular necrosis; G92 Toxic encephalopathy; R57.0 Cardiogenic shock; E44.0 Moderate protein-calorie malnutrition; R65.21 Severe sepsis with septic shock; K55.9 Vascular disorder of intestine, unspecified; J13 Pneumonia due to Streptococcus pneumoniae; K57.31 Diverticulosis of large intestine without perforation or abscess with bleeding; K63.3 Ulcer of intestine; J96.01 Acute respiratory failure with hypoxia; E87.2 Acidosis; E87.1 Hypo-osmolality and hyponatremia; E87.5 Hyperkalemia; I48.92 Unspecified atrial flutter; Z68.23 Body mass index [BMI] 23.0-23.9, adult; B19.20 Unspecified viral hepatitis C without hepatic coma; B96.89 Other specified bacterial agents as the cause of diseases classified elsewhere; D63.8 Anemia in other chronic diseases classified elsewhere; D68.59 Other primary thrombophilia; D69.59 Other secondary thrombocytopenia; R18.8 Other ascites; R13.12 Dysphagia, oropharyngeal phase; L03.211 Cellulitis of face; K64.8 Other hemorrhoids; K29.70 Gastritis, unspecified, without bleeding; J44.0 Chronic obstructive pulmonary disease with (acute) lower respiratory infection; I48.19 Other persistent atrial fibrillation; I47.1 Supraventricular tachycardia; K74.60 Unspecified cirrhosis of liver; I27.20 Pulmonary hypertension, unspecified; S50.822A Blister (nonthermal) of left forearm, initial encounter; S60.942A Unspecified superficial injury of right middle finger, initial encounter; I42.9 Cardiomyopathy, unspecified; F14.10 Cocaine abuse, uncomplicated; I08.1 Rheumatic disorders of both mitral and tricuspid valves; E87.6 Hypokalemia; X58.XXXA Exposure to other specified factors, initial encounter; E87.0 Hyperosmolality and hypernatremia; E83.51 Hypocalcemia; E83.42 Hypomagnesemia; I11.0 Hypertensive heart disease with heart failure; I50.43 Acute on chronic combined systolic (congestive) and diastolic (congestive) heart failure; Z79.899 Other long term (current) drug therapy; Y93.89 Activity, other specified; Y92.89 Other specified places as the place of occurrence of the external cause; Y99.8 Other external cause status; Z99.2 Dependence on renal dialysis; Z99.11 Dependence on respirator [ventilator] status; Z86.73 Personal history of transient ischemic attack (TIA), and cerebral infarction without residual deficits; Z78.1 Physical restraint status; Z59.0 Homelessness
CPT/HCPCS: 32555; 36415; 36556; 36600; 70486; 70490; 70551; 71045; 71250; 74018; 74176; 76700; 76770; 76937; 78278; 80048; 80053; 80076; 80162; 80202; 80305; 82140; 82150; 82248; 82270; 82310; 82330; 82375; 82533; 82550; 82607; 82746; 82805; 82962; 83036; 83605; 83615; 83735; 83880; 84100; 84134; 84145; 84439; 84443; 84478; 84481; 84484; 85014; 85018; 85025; 85027; 85384; 86705; 86709; 86803; 86850; 86900; 86920; 86927; 87015; 87045; 87070; 87075; 87077; 87186; 87340; 87389; 87427; 87449; 88108; 88305; 88312; 89055; 93005; 93306; 94002; 94003; 94640; 94660; 95816; 96365; 99285; A6261; A9560; C1725; C1752; C9113; J0282; J0690; J0692; J0696; J1160; J1630; J1650; J1815; J1885; J1940; J2020; J2060; J2250; J2270; J2370; J2543; J2704; J2765; J3010; J3370; J3430; J3475; J3480; J3490; J7040; J7060; J7070; J7608; P9016; P9017; P9034; P9047; A4315